=== PATIENT | male | born 1945 | race Caucasian/White ===

== ENCOUNTER 2017-06-03 10:00 | Outpatient (RCR) | payer MEDICARE ==
[2016-05-30 17:17] VITALS: BMI 26.8
[2017-03-19 09:42] VITALS: BP 145/97
[2017-06-03 10:33] LABS: PLATELET COUNT, AUTOMATED 174 K/uL (150-450)
== END 2017-06-06 11:13 | disposition home or self-care (01) ==
LOC: SPU 10:00
PROVIDERS: ATTEND Internal Medicine Medical Oncology
DX: I48.91 Unspecified atrial fibrillation (principal); C61 Malignant neoplasm of prostate; I10 Essential (primary) hypertension
CPT/HCPCS: 36415; 82040; 82247; 82310; 82374; 82435; 82565; 82947; 84075; 84132; 84153; 84155; 84295; 84450; 84460; 84520; 85025

== ENCOUNTER → 2017-06-03 | Outpatient (CLI) | payer MEDICARE ==
[2016-05-30 17:17] VITALS: BMI 26.8
[~2017-06-03] MED LIST: ALBU8.5H IH; ALL100 PO; APIX5TAB PO; ASPI-715 PO; ATOR40TA24 PO; CEP500 PO; CHOL200038 PO; CHOL500050 PO; CIPR-214 PO; CIPR250S PO; DABI150C3 PO; DIGO250T76 PO; DILT300C35 PO; ENAL2.5T52 PO; FERR325C2 PO; FLUT1DIS28 IH; FURO-45 PO; FURO10VI PO; HYDR-385 PO; LOR1 PO; METO100T20 PO; METO25TA93 PO; NEBI20TA3 PO; OMEP40CA48 PO; OXYGENHOME INH; PER PO; PHEN200T32 PO; SIMV-44 PO; SIMV-54 PO; SPIR25TA78 PO; TAMS0.4C25 PO; TELM1TAB20 PO; TIO18R INH; TIOT4MIS5 IH; VITA150T2 PO; WARF10TA29 PO; [UNRECOGNIZED DRUG - CODE] IJ
== END ==
LOC: SPU 10:10
PROVIDERS: ATTEND Urology
DX: C61 Malignant neoplasm of prostate (principal)
CPT/HCPCS: 36415; 84153

== ENCOUNTER → 2017-07-21 | Outpatient (CLI) | payer MEDICARE ==
[2016-05-30 17:17] VITALS: BMI 26.8
[~2017-07-21] MED LIST changes: +ASPI-1471 PO; +CLOT15CR64 TP; +FERR-53 PO; +FLUT1AER INH; +IPRA3AMP21 IH; +PHEN473S50 PO
[2017-07-21 14:11] LABS: PLATELET COUNT, AUTOMATED 140 K/uL (150-450)
== END ==
LOC: LAB 13:40
PROVIDERS: ATTEND Family Medicine
DX: J44.1 Chronic obstructive pulmonary disease with (acute) exacerbation (principal)
CPT/HCPCS: 36415; 82310; 82374; 82435; 82565; 82947; 84132; 84295; 84520; 85025

== ENCOUNTER 2017-09-30 10:49 | Outpatient (RCR) | payer MEDICARE, OTHER ==
[2016-05-30 17:17] VITALS: BMI 26.8
[2017-09-25 11:20] LABS: PLATELET COUNT, AUTOMATED 153 K/uL (150-450)
[2017-09-25 11:21] VITALS: BP 149/76
== END 2017-10-06 13:26 | disposition home or self-care (01) ==
LOC: RAON 10:49
PROVIDERS: ATTEND Radiology Radiation Oncology
DX: C61 Malignant neoplasm of prostate (principal)
CPT/HCPCS: 36415; 84153; 85025; G0463; 82040; 82247; 82310; 82374; 82435; 82565; 82947; 84075; 84132; 84155; 84295; 84450; 84460; 84520; 99212

== ENCOUNTER → 2017-12-03 | Outpatient (CLI) | payer MEDICARE ==
[2016-05-30 17:17] VITALS: BMI 26.8
[~2017-12-03] MED LIST changes: +IPRA3AMP10 IH; -IPRA3AMP21 IH; -SPIR25TA78 PO; +SPIR25TA80 PO
[2017-12-03 13:44] VITALS: BP 128/79
[2017-12-03 13:51] LABS: PLATELET COUNT, AUTOMATED 201 K/uL (150-450)
== END ==
LOC: SPU 11:27
PROVIDERS: ATTEND Urology
DX: C61 Malignant neoplasm of prostate (principal)
CPT/HCPCS: 36415; 82040; 82247; 82310; 82374; 82435; 82565; 82947; 84075; 84132; 84153; 84155; 84295; 84450; 84460; 84520; 85025

== ENCOUNTER → 2017-12-22 | Outpatient (CLI) | payer MEDICARE ==
[2016-05-30 17:17] VITALS: BMI 26.8
[~2017-12-22] MED LIST changes: +ALLO100T70 PO; +MIRT7.5T2 PO
--- NOTE | 2017-12-22 16:47 | RADIOLOGY IMAGING REPORT ---
FACILITY: [facility] PATIENT NAME: Juan Manzano : 1945 MR: [id number] V: [id number] EXAM DATE: ORDERING PHYSICIAN: EVANGELISTA CULVER TECHNOLOGIST: Location: [facility] [place] Patient: Juan Manzano : 1945 Visit/Account:[id number] Date of Sevice: 12/22/2017 Exam type: CHEST PA AND LAT History: effusion? increase o2 req Comparison: May 31, 2016 and May 29, 2016. Findings: Cardiomegaly and mild pulmonary vascular congestion appears similar to the prior study. There is a s light decrease in the small right pleural effusion. Spondylotic changes of the thoracic spine again noted. IMPRESSION: 1. Cardiomegaly and mild pulmonary vascular congestion again noted Slight decrease in small right pleural effusion Report Dictated By: Jaleesa Gonzalez MD at 12/22/2017 4:37 PM Report E-Signed By: Jaleesa Gonzalez MD at 12/22/2017 4:42 PM WSN:[email or web address]
== END ==
LOC: LAB 14:41
PROVIDERS: ATTEND Family Medicine
DX: I51.7 Cardiomegaly (principal); I25.10 Atherosclerotic heart disease of native coronary artery without angina pectoris; J90 Pleural effusion, not elsewhere classified; C91.90 Lymphoid leukemia, unspecified not having achieved remission; M10.9 Gout, unspecified; N18.9 Chronic kidney disease, unspecified
CPT/HCPCS: 36415; 71046; 82310; 82374; 82435; 82565; 82947; 84132; 84295; 84520; 84550

== ENCOUNTER → 2018-01-06 | Outpatient (CLI) | payer MEDICARE ==
[2016-05-30 17:17] VITALS: BMI 26.8
== END ==
LOC: LAB 14:23
PROVIDERS: ATTEND Family Medicine
DX: C61 Malignant neoplasm of prostate (principal); I12.9 Hypertensive chronic kidney disease with stage 1 through stage 4 chronic kidney disease, or unspecified chronic kidney disease; I48.91 Unspecified atrial fibrillation; N18.9 Chronic kidney disease, unspecified
CPT/HCPCS: 36415; 82310; 82374; 82435; 82565; 82947; 84132; 84295; 84520

== ENCOUNTER → 2018-01-20 | Outpatient (CLI) | payer MEDICARE ==
[2016-05-30 17:17] VITALS: BMI 26.8
[~2018-01-20] MED LIST changes: +PRED20TA6 PO
[2018-01-20 14:48] LABS: PLATELET COUNT, AUTOMATED 153 K/uL (150-450)
--- NOTE | 2018-01-20 16:26 | RADIOLOGY IMAGING REPORT ---
FACILITY: [facility] [place] PATIENT NAME: Juan Manzano : 1945 MR: [id number] V: [id number] EXAM DATE: ORDERING PHYSICIAN: ROSELINE LEDEZMA TECHNOLOGIST: Location: [facility] [place] Patient: Juan Manzano : 1945 Visit/Account:[id number] Date of Sevice: 01/20/2018 KNEE 4 VIEW RIGHT HISTORY: Right knee pain ADDITIONAL HISTORY: None. COMPARISON: None. FINDINGS: 4 views were obtained of the right knee. Medial and lateral joint space compartment are well-maintai jonathan. Patellofemoral joint is of normal caliber. There are no significant osteophytes. No erosions. Bony mineralization is normal. Suprapatellar joint effusion is present. There is no evidence of a cute or subacute fracture. IMPRESSION: 1. No evidence of acute osseous abnormality. 2. Small suprapatellar joint effusion. Report Dictated By: Julieth Clarke MD at 01/20/2018 4:08 PM Report E-Signed By: Julieth Clarke MD at 01/20/2018 4:23 PM WSN:[email or web address]
== END ==
LOC: RAD 14:30
PROVIDERS: ATTEND Nurse Practitioner Primary Care
DX: M25.461 Effusion, right knee (principal)
CPT/HCPCS: 36415; 73564; 84550; 85025

== ENCOUNTER 2018-01-28 18:01 | Emergency (ER) | payer MEDICARE ==
[2016-05-30 17:17] VITALS: Wt 80.7 kg
[~2018-01-28 18:01] MED LIST changes: +PRED-1 PO
--- NOTE | 2018-01-28 18:03 | ER Report ---
History and Physical Time Seen By MD: 18:03 HPI/ROS CHIEF COMPLAINT: Epistaxis of the left nare HISTORY OF PRESENT ILLNESS: Patient is a 73-year-old male here with a complaint of epistaxis since approximately 11:00 this morning from the left nare which she is been attempting to stop with application of napkins under pressure. Patient has a history of recurrent nosebleeds and is being treated with apixiban for anticoagulation. Patient denies fevers, chills, chest pain, shortness breath, lightheadedness, dizziness, orthostasis. Patient is otherwise well-appearing, hemodynamically stable at time of evaluation. REVIEW OF SYSTEMS: Constitutional: No fever, no chills. Eyes: No discharge. ENT: No sore throat, + slow bleeding from left nose Cardiovascular: No chest pain, no palpitations. Respiratory: No cough, no shortness of breath. Gastrointestinal: No abdominal pain, no vomiting. Genitourinary: No hematuria. Neurological: No headache. Allergies: Coded Allergies: No Known Drug Allergies (Unverified , 06/18/17) Home Meds Active Scripts Prednisone 10 Mg Tab (PREDNISONE 10 MG TAB) 10 Mg Tablet, 10 MG PO QDAY, #28 TAB take two tablets for three more days, then take 1.5 tablets x 1 week, then take 1 tab x 1 week, then take 1/2 tab x 1 week Prov:EVANGELISTA CULVER MD 01/27/18 Mirtazapine (MIRTAZAPINE) 7.5 Mg Tablet, 7.5 MG PO QHS for 90 Days, #90 TAB 4 Refills Prov:EVANGELISTA CULVER MD 01/21/18 Furosemide (FUROSEMIDE) 20 Mg Tablet, 1-2 TAB PO DAILY for 30 Days, #60 TAB 4 Refills Prov:EVANGELISTA CULVER MD 01/01/18 Allopurinol (ALLOPURINOL) 100 Mg Tablet, 1 TAB PO QDAY for 90 Days, #90 TAB 3 Refills Prov:EVANGELISTA CULVER MD 12/22/17 Ipratropium/Albuterol Sulfate (IPRAT-ALBUT 0.5-3(2.5) MG/3 ML) 3 Ml Ampul.neb, 3 ML IH BID for 30 Days, #60 KEATON 1 Refill Prov:EVANGELISTA CULVER MD 12/22/17 Enalapril Maleate (ENALAPRIL MALEATE) 2.5 Mg Tablet, 1 TAB PO DAILY, #90 TAB 4 Refills Prov:EVANGELISTA CULVER MD 07/21/17 Metoprolol Succinate (METOPROLOL SUCCINATE) 100 Mg Tab.er.24h, 1 TAB PO BID, #90 TAB 4 Refills Prov:EVANGELISTA CULVER MD 07/21/17 Simvastatin (SIMVASTATIN) 40 Mg Tablet, 1 TAB PO HS, #90 TAB 4 Refills Prov:EVANGELISTA CULVER MD 07/21/17 Digoxin (DIGOXIN) 250 Mcg Tablet, 1 TAB PO QDAY, #90 TAB 4 Refills Prov:EVANGELISTA CULVER MD 07/21/17 Tamsulosin Hcl (FLOMAX) 0.4 Mg Cap.er.24h, 0.4 MG PO DAILY, #90 CAP 3 Refills Take 1 tablet at night for bladder irritation post seed implant Prov:EVANGELISTA CULVER MD 07/21/17 Apixaban (ELIQUIS) 5 Mg Tablet, 1 TAB PO BID for 90 Days, #180 TAB 3 Refills Prov:EVANGELISTA CULVER MD 07/21/17 Albuterol Sulfate 90 Mcg/Act (PROAIR HFA 90 MCG/ACT) 8.5 Gm Hfa.aer.ad, 1-2 PUFF IH 3-4XD PRN for PRN for 90 Days, #3 INHALER 4 Refills Prov:EVANGELISTA CULVER MD 07/21/17 Phenylephrine HCl/Prometh HCl (Promethazine Vc Syrup) 5 Mg-6.25 Mg/5 Ml Syrup, 2 TSP PO BID PRN for CONGESTION for 7 Days, #1 BOT 1 Refill Prov:EVANGELISTA CULVER MD 07/18/17 Tiotropium [place] (SPIRIVA) 18 Mcg/Cap Inh, 1 CAP INH DAILY for 90 Days, #3 PACK 4 Refills Prov:EVANGLEISTA CULVER MD 07/11/17 Omeprazole (OMEPRAZOLE) 40 Mg Capsule.dr, 1 CAP PO QDAY PRN for heart burn, #90 CAP 4 Refills 1 tab by mouth every day before meal Prov:EVANGELISTA CULVER MD 06/18/17 Reported Medications Fluticasone/Vilanterol 100/25 Mcg/Inh (BREO ELLIPTA 100/25 MCG) 1 Each Aer.pow.ba, 1 INH INH QDAY, INH 07/21/17 Clotrimazole/Betamethasone Dip (CLOTRIMAZOLE-BETAMETHASONE CRM) 15 Gm Cream..g., 1 KEATON TP BID 06/18/17 Ferrous Sulfate (FERROUS SULFATE) 325 Mg Tablet, 1 TAB PO DAILY 06/18/17 Aspirin (ASPIR 81) 81 Mg Tablet.dr, 1 TAB PO QDAY, TAB 06/18/17 Cholecalciferol (Vitamin D3) (VITAMIN D3) 2,000 Unit Tablet, 1 CAP PO DAILY 11/28/16 Oxygen (OXYGEN) Inha, 2 L INH QDAY, L 11/28/16 Discontinued Scripts Prednisone (PREDNISONE) 20 Mg Tablet, 2 TAB PO QDAY, #11 TAB 0 Refills Take 2 tabs daily x3 days. Then 1 tab daily x3 days. Then 1/2 tab daily x4 days. Prov:ROSELINE LEDEZMA DNP, SCABBLER-BC 01/20/18 Hx Smoking: No (SMOKED 1 PPD FOR 30 YEARS. quit 2003) Smoking Status: Former Smoker Exposure to Second Hand Smoke?: No Hx Alcohol Use: Yes Constitutional Vital Sign - Last 24 Hours 01/28/18 01/28/18 01/28/18 01/28/18 18:04 18:08 18:31 18:52 Temp 98.0 Pulse 88 71 Resp 16 B/P (MAP) 132/62 (85) 132/62 107/82 (90) Pulse Ox 96 97 O2 Delivery Nasal Cannula 01/28/18 01/28/18 19:00 19:01 Pulse 75 B/P (MAP) 100/49 (66) Pulse Ox 96 Physical Exam General Appearance: The patient is alert, has no immediate need for airway protection and no signs of toxicity. NAD Eyes: Pupils equal and round no pallor or injection. ENT, Mouth: Mucous membranes are moist, + dried blood around left nare Respiratory: There are no retractions, lungs are clear to auscultation. Cardiovascular: Regular rate and rhythm. Gastrointestinal: Abdomen is soft and non tender, no masses, bowel sounds normal. Neurological: No focal deficits Skin: Warm and dry, no rashes. DIFFERENTIAL DIAGNOSIS: After history and physical exam differential diagnosis was considered for anterior versus posterior epistaxis Medical Decision Making ED Course/Re-evaluation ED Course Patient is a 73-year-old male here with complaints of epistaxis in the setting of eliquis. Patient reports intermittent bleeding since approximately 11:00 today. He does have a history of recurrent epistaxis. I initially applied tranexamic acid to a cotton plaget with cessation of bleeding. Patient had no symptoms of lightheadedness, dizziness, chest pain or shortness of breath. I applied 2 sprays of oxygen metolazone and send the patient home with nasal clamp and the remaining oxygen metolazone encase of rebleed. Patient voiced understanding of epistaxis management and outpatient setting. Patient agreed to return promptly if he was unable to stop the bleeding. Patient was hemodynamically stable at time of discharge. Decision to Disposition Date: Jan 28, 2018 Decision to Disposition Time: 19:53 Depart Departure Latest Vital Signs Vital Signs Date Time Temp Pulse Resp B/P (MAP) Pulse Ox O2 Delivery O2 Flow Rate FiO2 01/28/18 19:01 75 96 01/28/18 19:00 100/49 (66) 01/28/18 18:08 98.0 16 Nasal Cannula Impression: Primary Impression: Nosebleed Condition: Improved Disposition: HOME OR SELF-CARE Referrals: EVANGELISTA CULVER MD (PCP) Patient Instructions: Nosebleed (ED) Additional Instructions: You may apply 2 sprays of oxymetazoline was on her Afrin spray to the left nare and apply direct pressure using nose clamp for 15 minutes. Please return if you develop intractable bleeding from the nose in spite of attempts to stop the bleeding, lightheadedness, shortness breath, chest pains, abdominal pains. JOB HUNT DO Jan 28, 2018 18:03
[2018-01-28] MEDS ORDERED: TRANEXAMIC AC 1000 MG/10ML SDV ONE (18:15)
[2018-01-28 20:00] VITALS: BP 101/59
[2018-01-28] MEDS ORDERED: OXYMETAZOLINE SPRAY 15 ML BTL ENA SCH (21:00)
== END 2018-01-28 20:10 | disposition home or self-care (01) ==
LOC: ER 18:21
DX: R04.0 Epistaxis (principal)
CPT/HCPCS: 30901; 99283; A9270

== ENCOUNTER → 2018-02-13 | Outpatient (CLI) | payer MEDICARE ==
[2016-05-30 17:17] VITALS: BMI 26.8
[~2018-02-13] MED LIST changes: +BENZ200C15 PO; +LEVO750T44 PO
--- NOTE | 2018-02-18 15:01 | RADIOLOGY IMAGING REPORT ---
FACILITY: [facility] PATIENT NAME: Juan Manzano : 1945 MR: [id number] V: [id number] EXAM DATE: ORDERING PHYSICIAN: ROSELINE LEDEZMA TECHNOLOGIST: Location: [facility] [place] Patient: Juan Manzano : 1945 Visit/Account:[id number] Date of Sevice: 02/13/2018 Chest with lateral, two views. HISTORY: Shortness of breath, cough, smoking history. COMPARISON: 12/22/2017. Moderate cardiomegaly is unchanged. The left atrium is enlarged. Pulmonary vessels are engorged. T he aortic knob is calcified. Interstitial markings are thickened bilaterally. Streaky and patchy op acities are present in the posterior lung bases. The posterior costophrenic sulci are minimally blun luiz. Degenerative changes are present in the spine and shoulders. A few arterial calcifications are present in the upper abdomen. IMPRESSION: Moderate cardiomegaly. Borderline congestive heart failure. Bibasilar subsegmental atelectasis. Superimposed pneumonia is possible. Trace bilateral pleural effusions or thickening. Atherosclerosis. Report Dictated By: Jed Whitley MD at 02/18/2018 2:53 PM Report E-Signed By: Jed Whitley MD at 02/18/2018 2:56 PM WSN:[email or web address]
== END ==
LOC: RAD 11:17
PROVIDERS: ATTEND Nurse Practitioner Primary Care
DX: I51.7 Cardiomegaly (principal); I50.9 Heart failure, unspecified
CPT/HCPCS: 71046

== ENCOUNTER → 2018-02-16 | Outpatient (CLI) | payer MEDICARE ==
[2016-05-30 17:17] VITALS: BMI 26.8
--- NOTE | 2018-02-16 14:23 | RADIOLOGY IMAGING REPORT ---
FACILITY: [facility] - [place] PATIENT NAME: Juan Manzano : 1945 MR: [id number] V: [id number] EXAM DATE: ORDERING PHYSICIAN: EVANGELISTA CULVER TECHNOLOGIST: Location: [facility] [place] Patient: Juan Manzano : 1945 Visit/Account:[id number] Date of Sevice: 02/16/2018 EXAMINATION: Left elbow radiographs HISTORY: Pain, swelling COMPARISON: None. FINDINGS: Frontal, oblique and lateral views obtained. Bones: Normal. Joint spaces: Normal. Alignment: Normal. Soft tissues: Dorsal subcutaneous edema noted on lateral view. Effusion: Anterior and posterior fat pads are noted in keeping with a small joint effusion. IMPRESSION: No fracture of malalignment. Dorsal subcutaneous edema noted on lateral view. Small nonspecific elbow joint effusion. Report Dictated By: Antony Coughlin MD at 02/16/2018 2:14 PM Report E-Signed By: Antony Coughlin MD at 02/16/2018 2:18 PM WSN:[email or web address]
== END ==
LOC: RAD 13:41
PROVIDERS: ATTEND Family Medicine
DX: M25.422 Effusion, left elbow (principal); R60.0 Localized edema

== ENCOUNTER → 2018-02-23 | Outpatient (CLI) | payer MEDICARE ==
[2016-05-30 17:17] VITALS: BMI 26.8
== END ==
LOC: LAB 17:04
PROVIDERS: ATTEND Family Medicine
DX: N18.9 Chronic kidney disease, unspecified (principal); M10.9 Gout, unspecified
CPT/HCPCS: 36415; 82040; 82247; 82310; 82374; 82435; 82565; 82947; 84075; 84132; 84155; 84295; 84450; 84460; 84520; 84550

== ENCOUNTER → 2018-03-05 | Outpatient (CLI) | payer MEDICARE ==
[2016-05-30 17:17] VITALS: BMI 26.8
[~2018-03-05] MED LIST changes: +FLU180SY11 IM
[2018-03-05 14:27] LABS: PLATELET COUNT, AUTOMATED 164 K/uL (150-450)
--- NOTE | 2018-03-05 15:47 | RADIOLOGY IMAGING REPORT ---
FACILITY: [facility] PATIENT NAME: Juan Manzano : 1945 MR: [id number] V: [id number] EXAM DATE: ORDERING PHYSICIAN: EVANGELISTA CULVER TECHNOLOGIST: Location: [facility] Patient: Juan Manzano : 1945 Visit/Account:[id number] Date of Sevice: 03/05/2018 Exam type: CHEST PA AND LAT History: fu CXR, pna Comparison: February 13, 2018. Findings: Moderate cardiomegaly appears relatively unchanged. There is persistent blunting of the right costop hrenic angle which could be related to small amount of residual right pleural effusion versus pleural thickening. There is no evidence of overt pulmonary edema at this time. Linear opacities the lung bases appear relatively unchanged and may actually represent scarring at this time. There are spondy lotic changes of the thoracolumbar spine IMPRESSION: 1. Cardiomegaly unchanged Blunting of the right costophrenic angle unchanged and may represent pleural thickening versus a smal l residual right pleural effusion No evidence of overt pulmonary edema Streaky densities in the lung bases appears stable may actually represent scarring Report Dictated By: Jaleesa Gonzalez MD at 03/05/2018 3:39 PM Report E-Signed By: Jaleesa Gonzalez MD at 03/05/2018 3:43 PM WSN:[email or web address]
== END ==
LOC: LAB 14:10
PROVIDERS: ATTEND Family Medicine
DX: R09.02 Hypoxemia (principal); I51.7 Cardiomegaly
CPT/HCPCS: 36415; 71046; 82040; 82247; 82310; 82374; 82435; 82565; 82947; 84075; 84132; 84155; 84295; 84450; 84460; 84520; 85025

== ENCOUNTER → 2018-04-02 | Outpatient (CLI) | payer MEDICARE ==
[2016-05-30 17:17] VITALS: BMI 26.8
--- NOTE | 2018-04-02 16:40 | RADIOLOGY IMAGING REPORT ---
FACILITY: [facility] PATIENT NAME: Juan Manzano : 1945 MR: [id number] V: [id number] EXAM DATE: ORDERING PHYSICIAN: EVANGELISTA CULVER TECHNOLOGIST: Location: [facility] Patient: Juan Manzano : 1945 Visit/Account:[id number] Date of Sevice: 04/02/2018 Study: Frontal and lateral views of the chest Indication: History of pneumonia Comparison study: March 05, 2018 Findings: PA and lateral views of the chest demonstrate no evidence of acute infiltrate. There is no evidence of pleural effusion. There is no evidence of pneumothorax. The cardiac silhouette is enlarged. This is unchanged. There is no evidence of active congestive fail ure. The visualized bony structures are unremarkable. IMPRESSION: Cardiomegaly. No evidence of acute infiltrate. No evidence of active congestive failure. No evidence of pleural effusion. Report Dictated By: Ryan Plaaz at 04/02/2018 4:28 PM Report E-Signed By: Ryan Plaza at 04/02/2018 4:35 PM WSN:[id number]
== END ==
LOC: LAB 15:13
PROVIDERS: ATTEND Family Medicine
DX: I51.7 Cardiomegaly (principal)
CPT/HCPCS: 71046

== ENCOUNTER 2018-04-07 14:00 | Outpatient (RCR) | payer MEDICARE, OTHER ==
[2016-05-30 17:17] VITALS: BMI 26.8
[2018-04-03 11:12] VITALS: BP 106/52
[2018-04-07 14:16] VITALS: BP 100/48
--- NOTE | 2018-04-08 04:16 | ONCOLOGY FOLLOW UP NOTE ---
EVENT DATE: April 07, 2018 REASON FOR VISIT Oncology surveillance. CANCER HISTORY 1. Adenocarcinoma of the prostate, diagnosed 04/03/15. 2. Patient treated with external beam radiotherapy to 5040 cGy in 28 fractions, which was followed by a Palladium-103 seed implant boost. INTERVAL HISTORY Ramakrishna was seen for oncology surveillance appointment, clinically doing well. He states his voiding function is excellent. Denies any dysuria. Excellent control. AUA symptom score is quite low at 3. Since his last appointment, he has been able to stop alcohol use completely. He was congratulated on that effort. He stopped in November 2017. He denies any new or persistent bone pain. He remains on oxygen at 6L. His external beam radiotherapy was completed 05/22/15. The Palladium-[address] Sharpe was performed on 06/19/15. Most recent PSA is stable at 0.16 ng/mL, performed on 04/03/18. MEDICATIONS 1. Oxygen at 6L. 2. Advair. 3. Aspirin. 4. Generic Prilosec. 5. Digoxin. 6. Iron. 7. Lasix. 8. Metoprolol. 9. Pradaxa. 10. Simvastatin. 11. Spiriva. 12. Spironolactone. 13. Tamsulosin. 14. Vitamin B-complex. 15. Allopurinol. ALLERGIES None. PAST MEDICAL HISTORY 1. Prostate carcinoma. 2. COPD. 3. History of atrial fibrillation. 4. History of prior alcohol dependence, resolved. 5. History of pneumonia, 2018. 6. Gout. 7. History of pulmonary hypertension. 8. CLL. PAST SURGICAL HISTORY 1. Palladium-103 seed implant. 2. Previous right rotator cuff surgery. 3. Eye surgery. 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 Father had malignancy, NOS. Grandfather had leukemia at age 93. REVIEW OF SYSTEMS Notable for pneumonia approximately eight to 12 weeks ago, intermittent problems with gout, otherwise unremarkable. PHYSICAL EXAMINATION GENERAL: A pleasant 74-year-old male. VITAL SIGNS: BP 100/43, pulse 70, respirations 16, O2 saturation 91% on 6L. LYMPHATIC: No lymphadenopathy. LUNGS: Clear but distant bilaterally. CARDIOVASCULAR: Heart sounds regular. ABDOMEN: Soft. No gross organomegaly, mass, or tenderness. RECTAL: Deferred, as PSA is stable, under the 0.2 range. EXTREMITIES: No edema or cyanosis. NEUROLOGIC: Intact. IMPRESSION The patient is clinically doing well from the prostate cancer standpoint. He is now approaching the three-year interval from the completion of his external beam radiotherapy and seed implant boost. PSA is under 0.2 ng/mL. I advised him to have a repeat PSA at six months and 12 months, and I will tentatively expect to see him again at the 12-month appointment. Patient will continue regular medical visits with Dr. Mott per schedule. No medication changes today. MTDD
[2018-04-15] MEDS ORDERED: ALLO-2 PO (17:00)
== END 2018-04-15 12:47 | disposition home or self-care (01) ==
LOC: RAON 14:00
PROVIDERS: ATTEND Radiology Radiation Oncology
DX: C61 Malignant neoplasm of prostate (principal); Z92.3 Personal history of irradiation; Z99.81 Dependence on supplemental oxygen; J44.9 Chronic obstructive pulmonary disease, unspecified; Z86.79 Personal history of other diseases of the circulatory system; M10.9 Gout, unspecified; Z85.6 Personal history of leukemia; Z79.82 Long term (current) use of aspirin
CPT/HCPCS: 36415; 84153; G0463; 99212

== ENCOUNTER 2018-05-22 09:13 | Emergency (ER) | payer MEDICARE ==
[2016-05-30 17:17] VITALS: Wt 81.6 kg
[~2018-05-22 09:13] MED LIST changes: +ALLO-2 PO
[2018-05-22] MEDS ORDERED: ENT KIT ONE (09:40)
[2018-05-22] MEDS ORDERED: TRANEXAMIC AC 1000 MG/10ML SDV ONE (10:05)
[2018-05-22] MEDS ORDERED: PHENYLEPHRINE 0.5% 15 ML BTL ONE (10:05)
[2018-05-22 11:24] LABS: PLATELET COUNT, AUTOMATED 147 K/uL (150-450)
[2018-05-22 12:00] VITALS: BP 115/51
--- NOTE | 2018-05-22 12:20 | ER Report ---
History and Physical Time Seen By MD: 09:25 Hx. of Stated Complaint: Nose bleed, takes blood thinner HPI/ROS CHIEF COMPLAINT: Epistaxis HISTORY OF PRESENT ILLNESS: Patient presents with epistaxis since early this morning. Epistaxis has been constant for at least 3 hours. Patient has had approximately 4 episodes in the last 2-3 years. He is on [employer] for A. fib. He has attempted to control and struck pressure at home but this has been unsuccessful. Patient denies headache, chest pain, difficulty breathing, though of note he is on constant O2 for COPD. However, he has placed the nasal cannula in his oropharynx and this is preventing difficulty breathing. Patient denies blood in stool, nausea, vomiting, abdominal pain. He denies lightheadedness, syncope. REVIEW OF SYSTEMS: Constitutional: No fever, no chills. Eyes: No discharge. ENT: above Cardiovascular: No chest pain, no palpitations. Respiratory: No cough, no shortness of breath. Gastrointestinal: No abdominal pain, no vomiting. Genitourinary: No hematuria. Musculoskeletal: No back pain. Skin: No rashes. Neurological: No headache. Remainder of the 14 system rev: Yes Allergies: Coded Allergies: No Known Drug Allergies (Unverified , 06/18/17) Home Meds Active Scripts Apixaban (ELIQUIS) 5 Mg Tablet, 1 TAB PO BID for 90 Days, #180 TAB 2 Refills Prov:EVANGELISTA CULVER MD 04/23/18 Allopurinol (Allopurinol) 300 Mg Tablet, 1 TAB PO DAILY for 90 Days, #90 TAB Prov:EVANGELISTA CULVER MD 04/15/18 Ipratropium/Albuterol Sulfate (IPRAT-ALBUT 0.5-3(2.5) MG/3 ML) 3 Ml Ampul.neb, 3 ML IH BID for 30 Days, #60 KEATON 1 Refill Prov:EVANGELISTA CULVER MD 04/02/18 Metoprolol Succinate (METOPROLOL SUCCINATE) 100 Mg Tab.er.24h, 1 TAB PO BID for 90 Days, #180 TAB 4 Refills Prov:EVANGELISTA CULVER MD 03/12/18 Benzonatate (BENZONATATE) 200 Mg Capsule, 1 CAP PO TID PRN for COUGH, #30 CAP 0 Refills Prov:EVANGELISTA CULVER MD 02/23/18 Mirtazapine (MIRTAZAPINE) 7.5 Mg Tablet, 7.5 MG PO QHS for 90 Days, #90 TAB 4 Refills Prov:EVANGELISTA CULVER MD 01/21/18 Furosemide (FUROSEMIDE) 20 Mg Tablet, 1-2 TAB PO DAILY for 30 Days, #60 TAB 4 Refills Prov:EVANGELISTA CULVER MD 01/01/18 Enalapril Maleate (ENALAPRIL MALEATE) 2.5 Mg Tablet, 1 TAB PO DAILY, #90 TAB 4 Refills Prov:EVANGELISTA CULVER MD 07/21/17 Simvastatin (SIMVASTATIN) 40 Mg Tablet, 1 TAB PO HS, #90 TAB 4 Refills Prov:EVANGELISTA CULVER MD 07/21/17 Digoxin (DIGOXIN) 250 Mcg Tablet, 1 TAB PO QDAY, #90 TAB 4 Refills Prov:EVANGELISTA CULVER MD 07/21/17 Tamsulosin Hcl (FLOMAX) 0.4 Mg Cap.er.24h, 0.4 MG PO DAILY, #90 CAP 3 Refills Take 1 tablet at night for bladder irritation post seed implant Prov:EVANGELISTA CULVER MD 07/21/17 Albuterol Sulfate 90 Mcg/Act (PROAIR HFA 90 MCG/ACT) 8.5 Gm Hfa.aer.ad, 1-2 PUFF IH 3-4XD PRN for PRN for 90 Days, #3 INHALER 4 Refills Prov:EVANGELISTA CULVER MD 07/21/17 Phenylephrine HCl/Prometh HCl (Promethazine Vc Syrup) 5 Mg-6.25 Mg/5 Ml Syrup, 2 TSP PO BID PRN for CONGESTION for 7 Days, #1 BOT 1 Refill Prov:EVANGELISTA CULVER MD 07/18/17 Tiotropium [place] (SPIRIVA) 18 Mcg/Cap Inh, 1 CAP INH DAILY for 90 Days, #3 PACK 4 Refills Prov:EVANGELISTA CULVER MD 07/11/17 Omeprazole (OMEPRAZOLE) 40 Mg Capsule.dr, 1 CAP PO QDAY PRN for heart burn, #90 CAP 4 Refills 1 tab by mouth every day before meal Prov:EVANGELISTA CULVER MD 06/18/17 Reported Medications Fluticasone/Vilanterol 100/25 Mcg/Inh (BREO ELLIPTA 100/25 MCG) 1 Each Aer.pow.ba, 1 INH INH QDAY, INH 07/21/17 Clotrimazole/Betamethasone Dip (CLOTRIMAZOLE-BETAMETHASONE CRM) 15 Gm Cream..g., 1 KEATON TP BID 06/18/17 Ferrous Sulfate (FERROUS SULFATE) 325 Mg Tablet, 1 TAB PO DAILY 06/18/17 Cholecalciferol (Vitamin D3) (VITAMIN D3) 2,000 Unit Tablet, 1 CAP PO DAILY 11/28/16 Oxygen (OXYGEN) Inha, 2 L INH QDAY, L 11/28/16 Discontinued Scripts Benzonatate (BENZONATATE) 200 Mg Capsule, 1 CAP PO TID PRN for COUGH for 3 Days, #9 CAP 0 Refills Prov:ROSELINE LEDEZMA DNP, FIRST RESPONDER-BC 02/20/18 Reviewed Nurses Notes: Yes Old Medical Records Reviewed: Yes Hx Smoking: No (SMOKED 1 PPD FOR 30 YEARS. quit 2003) Smoking Status: Former Smoker Exposure to Second Hand Smoke?: No Hx Substance Use Disorder: No Hx Alcohol Use: Yes Constitutional Vital Sign - Last 24 Hours 05/22/18 05/22/18 05/22/18 05/22/18 09:17 09:52 10:00 10:13 Pulse 109 77 Resp 16 B/P (MAP) 127/62 124/69 (87) 117/60 (79) Pulse Ox 75 95 O2 Delivery Nasal Cannula 05/22/18 05/22/18 05/22/18 05/22/18 10:18 10:30 10:48 11:00 Pulse ??? 68 B/P (MAP) 109/40 (63) 116/59 (78) Pulse Ox 96 98 05/22/18 05/22/18 05/22/18 05/22/18 11:05 11:30 11:35 12:00 Pulse 69 71 B/P (MAP) 132/71 (91) 115/51 (72) Pulse Ox 98 97 05/22/18 12:05 Pulse 63 Pulse Ox 97 Physical Exam General Appearance: The patient is alert, has no immediate need for airway protection and no signs of toxicity. Eyes: Pupils equal and round no pallor or injection. ENT, Mouth: Mucous membranes are moist. R nare nl. L nare brisk bleeding without pulsatile. Speculum exam shows apparent septal anterior source of bleeding. Respiratory: There are no retractions, lungs are clear to auscultation. Cardiovascular: irregular rhythm, rate 60-80 Neurological: alert, moves all ext Skin: Warm and dry, no rashes. Musculoskeletal: extremities nonswollen DIFFERENTIAL DIAGNOSIS: After history and physical exam differential diagnosis was considered for post epistaxis, significant anemia, polyp/mass, or other emergent cause of bleeding. Medical Decision Making Data Points Result Diagram: 05/22/18 1118 05/22/18 1118 Laboratory Hematology Test 05/22/18 11:18 Red Blood Count 3.38 M/uL (4.00-5.60) Mean Corpuscular Volume 94.0 fL (80.0-96.0) Mean Corpuscular Hemoglobin 29.2 pg (26.0-33.0) Mean Corpuscular Hemoglobin Concent 31.0 g/dL (32.0-36.0) Red Cell Distribution Width 16.0 % (11.5-14.5) Mean Platelet Volume 7.8 fL (7.2-11.1) Neutrophils (%) (Auto) 11.0 % (39.4-72.5) Lymphocytes (%) (Auto) 87.2 % (17.6-49.6) Monocytes (%) (Auto) 0.7 % (4.1-12.4) Eosinophils (%) (Auto) 0.1 % (0.4-6.7) Basophils (%) (Auto) 1.0 % (0.3-1.4) Nucleated RBC Relative Count (auto) 0.0 /100WBC Neutrophils # (Auto) 6.0 K/uL (2.0-7.4) Lymphocytes # (Auto) 47.3 K/uL (1.3-3.6) Monocytes # (Auto) 0.4 K/uL (0.3-1.0) Eosinophils # (Auto) 0.0 K/uL (0.0-0.5) Basophils # (Auto) 0.5 K/uL (0.0-0.1) Nucleated RBC Absolute Count (auto) 0.01 K/uL Peripheral Blood Smear Yes Y/N Sodium Level 136 mmol/L (137-145) Potassium Level 4.5 mmol/L (3.5-5.0) Chloride Level 94 mmol/L (98-107) Carbon Dioxide Level 37 mmol/L (22-30) Blood Urea Nitrogen 42 mg/dl (9-21) Creatinine 1.40 mg/dl (0.66-1.25) Glomerular Filtration Rate Calc 49.8 Random Glucose 100 mg/dl (75-110) Calcium Level 9.6 mg/dl (8.4-10.2) Chemistry Test 05/22/18 11:18 White Blood Count 54.3 k/uL (4.5-11.0) Red Blood Count 3.38 M/uL (4.00-5.60) Hemoglobin 9.9 g/dL (14.0-18.0) Hematocrit 31.8 % (42.0-52.0) Mean Corpuscular Volume 94.0 fL (80.0-96.0) Mean Corpuscular Hemoglobin 29.2 pg (26.0-33.0) Mean Corpuscular Hemoglobin Concent 31.0 g/dL (32.0-36.0) Red Cell Distribution Width 16.0 % (11.5-14.5) Platelet Count 147 K/uL (150-450) Mean Platelet Volume 7.8 fL (7.2-11.1) Neutrophils (%) (Auto) 11.0 % (39.4-72.5) Lymphocytes (%) (Auto) 87.2 % (17.6-49.6) Monocytes (%) (Auto) 0.7 % (4.1-12.4) Eosinophils (%) (Auto) 0.1 % (0.4-6.7) Basophils (%) (Auto) 1.0 % (0.3-1.4) Nucleated RBC Relative Count (auto) 0.0 /100WBC Neutrophils # (Auto) 6.0 K/uL (2.0-7.4) Lymphocytes # (Auto) 47.3 K/uL (1.3-3.6) Monocytes # (Auto) 0.4 K/uL (0.3-1.0) Eosinophils # (Auto) 0.0 K/uL (0.0-0.5) Basophils # (Auto) 0.5 K/uL (0.0-0.1) Nucleated RBC Absolute Count (auto) 0.01 K/uL Peripheral Blood Smear Yes Y/N Glomerular Filtration Rate Calc 49.8 Calcium Level 9.6 mg/dl (8.4-10.2) ED Course/Re-evaluation ED Course Pt presents with epistaxis; controlled in ED with txa after I discussed risks and benefits of txa v packing. Pt understands there is theoretical risk with his afib and elequis but is adamantly opposed to packing. Bleeding is ultimately controlled in ED and pt is comfortable with d/c, understands sgs/symptoms of complications and rtn precautions. Procedure Procedure: Epistaxis control. The patient was anesthetized with oxymetazolin. The anterior epistaxis was identified. The patient was treated with tranexamic acid, cautery. Followin g the procedure the patient was re-examined and the bleeding was well controlled. The patient tolerated the procedure well. The procedure was performed by myself. Decision to Disposition Date: May 22, 2018 Decision to Disposition Time: 12:24 Depart Departure Latest Vital Signs Vital Signs Date Time Temp Pulse Resp B/P (MAP) Pulse Ox O2 Delivery O2 Flow Rate FiO2 05/22/18 12:05 63 97 05/22/18 12:00 115/51 (72) 05/22/18 09:17 16 Nasal Cannula Impression: Primary Impression: Epistaxis Additional Impression: Leukocytosis Condition: Improved Disposition: HOME OR SELF-CARE Referrals: EVANGELISTA CULVER MD (PCP) 2 Days RICKEY PASTOR JR, MD 5 Days Patient Instructions: Nosebleed (ED) Additional Instructions: As we discussed, though unlikely, the nasal spray I used has a small risk of clotting. Please return immediately for any new weakness, confusion, chest pain, difficulty breathing, or any concerns. Follow up with your oncologist as we discussed for evaluation of your white blood cell count. Follow up with ENT for repeat evaluation and need for any further cautery. Problem Qualifiers Additional Impression: Leukocytosis Leukocytosis type: unspecified Qualified Codes: D72.829 - Elevated white blood cell count, unspecified MARCEL CANALES MD May 22, 2018 12:20
== END 2018-05-22 12:36 | disposition home or self-care (01) ==
LOC: ER 09:52
DX: R04.0 Epistaxis (principal); D72.829 Elevated white blood cell count, unspecified
CPT/HCPCS: 36415; 82310; 82374; 82435; 82565; 82947; 84132; 84295; 84520; 85025; 99282

== ENCOUNTER 2018-06-05 10:31 | Outpatient (RCR) | payer MEDICARE, OTHER ==
[2016-05-30 17:17] VITALS: BMI 26.8
[2018-06-04 12:35] LABS: PLATELET COUNT, AUTOMATED 169 K/uL (150-450)
[2018-06-15] MEDS ORDERED: FORM20VI IH (11:12)
[2018-06-15] MEDS ORDERED: BUDE1AMP (11:12)
[2018-06-18] MEDS ORDERED: PRED20TA6 PO (10:26)
== END 2018-06-17 09:28 | disposition home or self-care (01) ==
LOC: RAON 10:31
PROVIDERS: ATTEND Radiology Radiation Oncology
DX: C61 Malignant neoplasm of prostate (principal); Z92.3 Personal history of irradiation; Z99.81 Dependence on supplemental oxygen; J44.9 Chronic obstructive pulmonary disease, unspecified; Z86.79 Personal history of other diseases of the circulatory system; M10.9 Gout, unspecified; Z85.6 Personal history of leukemia; Z79.82 Long term (current) use of aspirin
CPT/HCPCS: 36415; 82040; 82247; 82310; 82374; 82435; 82565; 82947; 84075; 84132; 84153; 84155; 84295; 84450; 84460; 84520; 85025

== ENCOUNTER → 2018-06-15 | Outpatient (CLI) | payer MEDICARE ==
[2016-05-30 17:17] VITALS: BMI 26.8
[~2018-06-15] MED LIST changes: +BUDE1AMP; +FORM20VI IH
--- NOTE | 2018-06-15 11:49 | RADIOLOGY IMAGING REPORT ---
FACILITY: [facility] PATIENT NAME: Juan Manzano : 1945 MR: [id number] V: [id number] EXAM DATE: ORDERING PHYSICIAN: EVANGELISTA CULVER TECHNOLOGIST: Location: [facility] Patient: Juan Manzano : 1945 Visit/Account:[id number] Date of Sevice: 06/15/2018 CHEST PA LAT Additional pertinent History: Hypoxia COMPARISON STUDIES: 04/02/2018 FINDINGS: Support lines and catheters: None Lungs and Pleura: Coarse bibasilar bronchial thickening changes. There is an increasing opacity not ed in the posterior aspect of the left lung on the lateral film. This is not silhouetting the axminster rug setter ior aspect of the adjacent hemidiaphragm. Heart and vasculature: Heart enlarged. Central vasculature without congestion Gertrude and Mediastinum: Negative. Bones and Chest wall: Negative. Upper Abdomen: Negative. IMPRESSION: 1. Cardiomegaly. Coarse bibasilar bronchitic changes. Slight increasing opacity in the posterior a spect of the lung on the lateral film when compared to the previous study but fairly equivalent to a study from 02/13/2018 suggesting this likely represents chronic bronchial thickening/atelectasis rathe r than a developing infiltrate. Report Dictated By: Jaydon Moran MD at 06/15/2018 11:38 AM Report E-Signed By: Jaydon Moran MD at 06/15/2018 11:45 AM WSN:PHU
[2018-06-15 11:50] LABS: PLATELET COUNT, AUTOMATED 166 K/uL (150-450)
== END ==
LOC: LAB 11:01
PROVIDERS: ATTEND Family Medicine
DX: I51.7 Cardiomegaly (principal); R91.8 Other nonspecific abnormal finding of lung field; M10.9 Gout, unspecified; N18.9 Chronic kidney disease, unspecified; R09.02 Hypoxemia
CPT/HCPCS: 36415; 71046; 82310; 82374; 82435; 82565; 82947; 84132; 84295; 84520; 84550; 85025

== ENCOUNTER → 2018-06-29 | Outpatient (CLI) | payer MEDICARE ==
[2016-05-30 17:17] VITALS: BMI 26.8
[~2018-06-29] MED LIST changes: +OXYC5TAB38 PO
--- NOTE | 2018-06-29 16:29 | RADIOLOGY IMAGING REPORT ---
FACILITY: [facility] [place] PATIENT NAME: Juan Manzano : 1945 MR: [id number] V: [id number] EXAM DATE: ORDERING PHYSICIAN: EVANGELISTA CULVER TECHNOLOGIST: Location: [facility] [place] Patient: Juan Manzano : 1945 Visit/Account:[id number] Date of Sevice: 06/29/2018 EXAMINATION: Left foot, 3 views 06/29/2018 1:55 PM HISTORY: left foot heel pain COMPARISON: None FINDINGS: Bony structures of left foot are intact without fracture or other acute osseous abnormalit y. Minimal spurring along the first MTP. No erosive changes. Achilles and plantar calcaneal spurri ng. IMPRESSION: 1. Achilles and plantar calcaneal spurring present. 2. No acute bony finding the foot. Report Dictated By: Harman Linda MD at 06/29/2018 4:23 PM Report E-Signed By: Harman Linda MD at 06/29/2018 4:24 PM WSN:PHU
== END ==
LOC: RAD 13:29
PROVIDERS: ATTEND Family Medicine
DX: M77.32 Calcaneal spur, left foot (principal)

== ENCOUNTER 2018-07-18 08:11 | Emergency (ER) | payer MEDICARE ==
[2016-05-30 17:17] VITALS: Wt 81.8 kg
[2018-07-18] MEDS ORDERED: ENT KIT ONE (09:06)
--- NOTE | 2018-07-18 09:14 | ER Report ---
History and Physical Time Seen By MD: 09:12 Hx. of Stated Complaint: NOSEBLEED SINCE 7PM LAST NIGHT HPI/ROS CHIEF COMPLAINT: Nosebleed HISTORY OF PRESENT ILLNESS: Patient is a 73-year-old male with past medical history for atrial fibrillation and anticoagulated with Eliquis; states had no nosebleed that began around 7 PM last evening. Nosebleed would start and stop kept him up all night. He denies any headache or dizziness. No other complaints at this time. REVIEW OF SYSTEMS: ENT: Nosebleed Respiratory: No cough, no dyspnea. Cardiovascular: No chest pain, no palpitations. Gastrointestinal: No vomiting, no abdominal pain. Musculoskeletal: No back pain. Allergies: Coded Allergies: No Known Drug Allergies (Unverified , 06/18/17) Home Meds Active Scripts Digoxin (DIGOXIN) 250 Mcg Tablet, 1 TAB PO QDAY for 90 Days, #90 TAB 4 Refills Prov:EVANGELISTA CULVER MD 06/24/18 Ipratropium/Albuterol Sulfate (IPRAT-ALBUT 0.5-3(2.5) MG/3 ML) 3 Ml Ampul.neb, 3 ML IH 1-3XD, #90 KEATON Prov:EVANGELISTA CULVER MD 06/22/18 Apixaban (ELIQUIS) 5 Mg Tablet, 1 TAB PO BID for 90 Days, #180 TAB 2 Refills Prov:EVANGELISTA CULVER MD 04/23/18 Allopurinol (Allopurinol) 300 Mg Tablet, 1 TAB PO DAILY for 90 Days, #90 TAB Prov:EVANGELISTA CULVER MD 04/15/18 Metoprolol Succinate (METOPROLOL SUCCINATE) 100 Mg Tab.er.24h, 1 TAB PO BID for 90 Days, #180 TAB 4 Refills Prov:EVANGELISTA CULVER MD 03/12/18 Benzonatate (BENZONATATE) 200 Mg Capsule, 1 CAP PO TID PRN for COUGH, #30 CAP 0 Refills Prov:EVANGELISTA CULVER MD 02/23/18 Mirtazapine (MIRTAZAPINE) 7.5 Mg Tablet, 7.5 MG PO QHS for 90 Days, #90 TAB 4 Refills Prov:EVANGELISTA CULVER MD 01/21/18 Furosemide (FUROSEMIDE) 20 Mg Tablet, 1-2 TAB PO DAILY for 30 Days, #60 TAB 4 Refills Prov:EVANGELISTA CULVER MD 01/01/18 Enalapril Maleate (ENALAPRIL MALEATE) 2.5 Mg Tablet, 1 TAB PO DAILY, #90 TAB 4 Refills Prov:EVANGELISTA CULVER MD 07/21/17 Simvastatin (SIMVASTATIN) 40 Mg Tablet, 1 TAB PO HS, #90 TAB 4 Refills Prov:EVANGELISTA CULVER MD 07/21/17 Tamsulosin Hcl (FLOMAX) 0.4 Mg Cap.er.24h, 0.4 MG PO DAILY, #90 CAP 3 Refills Take 1 tablet at night for bladder irritation post seed implant Prov:EVANGELISTA CULVER MD 07/21/17 Albuterol Sulfate 90 Mcg/Act (PROAIR HFA 90 MCG/ACT) 8.5 Gm Hfa.aer.ad, 1-2 PUFF IH 3-4XD PRN for PRN for 90 Days, #3 INHALER 4 Refills Prov:EVANGELISTA CULVER MD 07/21/17 Phenylephrine HCl/Prometh HCl (Promethazine Vc Syrup) 5 Mg-6.25 Mg/5 Ml Syrup, 2 TSP PO BID PRN for CONGESTION for 7 Days, #1 BOT 1 Refill Prov:EVANGELISTA CULVER MD 07/18/17 Tiotropium [place] (SPIRIVA) 18 Mcg/Cap Inh, 1 CAP INH DAILY for 90 Days, #3 PACK 4 Refills Prov:EVANGELISTA CULVER MD 07/11/17 Omeprazole (OMEPRAZOLE) 40 Mg Capsule.dr, 1 CAP PO QDAY PRN for heart burn, #90 CAP 4 Refills 1 tab by mouth every day before meal Prov:EVANGELISTA CULVER MD 06/18/17 Reported Medications Formoterol Fumarate (PERFOROMIST) Unknown Strength Vial.neb, 1 IH BID 06/15/18 Budesonide (Budesonide) Unknown Strength Ampul.neb, 1 BID 06/15/18 Clotrimazole/Betamethasone Dip (CLOTRIMAZOLE-BETAMETHASONE CRM) 15 Gm Cream..g., 1 KEATON TP BID 06/18/17 Ferrous Sulfate (FERROUS SULFATE) 325 Mg Tablet, 1 TAB PO DAILY 06/18/17 Cholecalciferol (Vitamin D3) (VITAMIN D3) 2,000 Unit Tablet, 1 CAP PO DAILY 11/28/16 Oxygen (OXYGEN) Inha, 2 L INH QDAY, L 11/28/16 Discontinued Scripts Oxycodone Hcl (OXYCODONE HCL) 5 Mg Tablet, 5-10 MG PO 2-4XD, #30 TAB Prov:EVANGELISTA CULVER MD 06/25/18 Prednisone 10 Mg Tab (PREDNISONE 10 MG TAB) 10 Mg Tablet, 0.5-4 TAB PO QDAY, #32 TAB 4 tabs am x 3 days, 3 tabs am x 3 days, 2 tabs am x 3 days, 1 tab am x 3 days, 1/2 tab am x 3 days Prov:EVANGELISTA CULVER MD 06/22/18 Past Medical/Surgical History Past medical history for atrial fibrillation, hyperlipidemia, hypertension, COPD, chronic leukocytic leukemia, prostate cancer. Baseline White count is approximately 50,000 Hx Smoking: No (SMOKED 1 PPD FOR 30 YEARS. quit 2003) Smoking Status: Former Smoker Exposure to Second Hand Smoke?: No Hx Substance Use Disorder: No Hx Alcohol Use: Yes Constitutional Vital Sign - Last 24 Hours 07/18/18 07/18/18 07/18/18 07/18/18 08:11 08:20 08:26 08:30 Pulse ??? 87 B/P (MAP) 117/58 (77) 109/50 (69) Pulse Ox 94 07/18/18 07/18/18 07/18/18 07/18/18 08:40 08:41 08:56 09:00 Pulse 80 76 93 Resp 18 B/P (MAP) 109/50 103/64 (77) Pulse Ox 95 95 91 07/18/18 07/18/18 07/18/18 07/18/18 09:11 09:26 09:30 09:41 Pulse 84 82 74 B/P (MAP) 116/69 (85) Pulse Ox 97 97 99 07/18/18 07/18/18 09:56 10:22 Temp 97.7 Pulse 78 Pulse Ox 97 Physical Exam General Appearance: Alert, no distress. Eyes: [Pupils equal and round no pallor or injection.] ENT, Mouth: Ears: Tympanic membranes are normal. Nose: Some oozing from left naris Mouth: Mucous membranes are moist. Throat: No erythema or exudates there is no tonsillar hypertrophy and uvula is midline. Musculoskeletal: Neck is supple non tender, no adenopathy. Skin: Warm and dry, no rashes. Medical Decision Making Data Points Result Diagram: 07/18/18 0936 Laboratory Hematology Test 07/18/18 09:36 Red Blood Count 2.99 M/uL (4.00-5.60) Mean Corpuscular Volume 92.5 fL (80.0-96.0) Mean Corpuscular Hemoglobin 29.4 pg (26.0-33.0) Mean Corpuscular Hemoglobin Concent 31.8 g/dL (32.0-36.0) Red Cell Distribution Width 16.5 % (11.5-14.5) Mean Platelet Volume 8.3 fL (7.2-11.1) Neutrophils (%) (Auto) % (39.4-72.5) Lymphocytes (%) (Auto) % (17.6-49.6) Monocytes (%) (Auto) % (4.1-12.4) Eosinophils (%) (Auto) % (0.4-6.7) Basophils (%) (Auto) % (0.3-1.4) Nucleated RBC Relative Count (auto) /100WBC Neutrophils # (Auto) K/uL (2.0-7.4) Lymphocytes # (Auto) K/uL (1.3-3.6) Monocytes # (Auto) K/uL (0.3-1.0) Eosinophils # (Auto) K/uL (0.0-0.5) Basophils # (Auto) K/uL (0.0-0.1) Nucleated RBC Absolute Count (auto) K/uL Neutrophils % (Manual) 9 % (39.4-72.5) Band Neutrophils % 2 % Lymphocytes % (Manual) 62 % (17.6-49.6) Atypical Lymphocytes % 25 % Monocytes % (Manual) 2 % (4.1-12.4) Eosinophils % (Manual) 0 % (0.4-6.7) Basophils % (Manual) 0 % (0.3-1.4) Platelet Estimate Low Peripheral Blood Smear Yes Y/N Chemistry Test 07/18/18 09:36 White Blood Count 52.8 k/uL (4.5-11.0) Red Blood Count 2.99 M/uL (4.00-5.60) Hemoglobin 8.8 g/dL (14.0-18.0) Hematocrit 27.6 % (42.0-52.0) Mean Corpuscular Volume 92.5 fL (80.0-96.0) Mean Corpuscular Hemoglobin 29.4 pg (26.0-33.0) Mean Corpuscular Hemoglobin Concent 31.8 g/dL (32.0-36.0) Red Cell Distribution Width 16.5 % (11.5-14.5) Platelet Count 144 K/uL (150-450) Mean Platelet Volume 8.3 fL (7.2-11.1) Neutrophils (%) (Auto) % (39.4-72.5) Lymphocytes (%) (Auto) % (17.6-49.6) Monocytes (%) (Auto) % (4.1-12.4) Eosinophils (%) (Auto) % (0.4-6.7) Basophils (%) (Auto) % (0.3-1.4) Nucleated RBC Relative Count (auto) /100WBC Neutrophils # (Auto) K/uL (2.0-7.4) Lymphocytes # (Auto) K/uL (1.3-3.6) Monocytes # (Auto) K/uL (0.3-1.0) Eosinophils # (Auto) K/uL (0.0-0.5) Basophils # (Auto) K/uL (0.0-0.1) Nucleated RBC Absolute Count (auto) K/uL Neutrophils % (Manual) 9 % (39.4-72.5) Band Neutrophils % 2 % Lymphocytes % (Manual) 62 % (17.6-49.6) Atypical Lymphocytes % 25 % Monocytes % (Manual) 2 % (4.1-12.4) Eosinophils % (Manual) 0 % (0.4-6.7) Basophils % (Manual) 0 % (0.3-1.4) Platelet Estimate Low Peripheral Blood Smear Yes Y/N ED Course/Re-evaluation ED Course 07/18/2018 9:26:31 am after infusion of Kodak-Synephrine, a medium-sized Rhino Rocket was placed in the left naris 07/18/2018 10:07:05 am bleeding seems to be controlled after placement of Rhino Rocket. We'll discharge patient home have him schedule a follow-up appointment either with his primary care provider or with Dr. Pastor on Friday for removal of packing. Decision to Disposition Date: Jul 18, 2018 Decision to Disposition Time: 10:06 Depart Departure Latest Vital Signs Vital Signs Date Time Temp Pulse Resp B/P (MAP) Pulse Ox O2 Delivery O2 Flow Rate FiO2 07/18/18 10:22 97.7 07/18/18 09:56 78 97 07/18/18 09:30 116/69 (85) 07/18/18 08:40 18 Impression: Primary Impression: Nosebleed Condition: Improved Disposition: HOME OR SELF-CARE Referrals: EVANGELISTA CULVER MD (PCP) BAYRON PASTOR JR, MD Patient Instructions: Nosebleed (GEN) Additional Instructions: Call on Friday, July 20 to schedule an appointment either with your primary care provider, Dr Culver, Dr. Bayron Pastor who is an ear nose and throat doctor to be reevaluated to determine if you nasal packing can be removed. MARCEL NUNES MD Jul 18, 2018 09:14
[2018-07-18 09:30] VITALS: BP 116/69
[2018-07-18 09:44] LABS: PLATELET COUNT, AUTOMATED 144 K/uL (150-450)
[2018-07-18] MEDS ORDERED: PHENYLEPHRINE 0.5% 15 ML BTL ONE (11:05)
[2018-07-18] MEDS ORDERED: CEPH500T7 PO (17:18)
[2018-07-21] MEDS ORDERED: ALLO-2 PO (16:29)
== END 2018-07-18 10:22 | disposition home or self-care (01) ==
LOC: ER 09:16
DX: R04.0 Epistaxis (principal)
CPT/HCPCS: 30901; 36415; 85025; 99282; A9270

== ENCOUNTER 2018-07-18 16:01 | Emergency (ER) | payer MEDICARE ==
[2016-05-30 17:17] VITALS: Wt 81.8 kg
[2018-07-18] MEDS ORDERED: ENT KIT ONE ×2 (16:05→16:17)
--- NOTE | 2018-07-18 16:07 | ER Report ---
History and Physical Time Seen By MD: 16:06 HPI/ROS CHIEF COMPLAINT: nosebleed HISTORY OF PRESENT ILLNESS: Pt here for evaluation of recurrent nosebleed. Pt states nosebleed started 24 hours ago. Pt at home tried pressure and afrin to stop bleeding. Came in this am and had it packed but bleeding restarted once home. now dripping in front and down back of throat. Pt is on eliquis for afib. Pt denies chest pain or sob. REVIEW OF SYSTEMS: Constitutional: No fever, no chills. Eyes: No discharge. ENT: No sore throat. + nose bleed Cardiovascular: No chest pain, no palpitations. Respiratory: No cough, no shortness of breath. Gastrointestinal: No abdominal pain, no vomiting. Genitourinary: No hematuria. Musculoskeletal: No back pain. Skin: No rashes. Neurological: No headache. Allergies: Coded Allergies: No Known Drug Allergies (Unverified , 06/18/17) Home Meds Active Scripts Cephalexin 500 Mg Tab (KEFLEX 500 MG TAB) 500 Mg Tablet, 500 MG PO BID, #10 TAB Prov:MALIK GOODE DO 07/18/18 Digoxin (DIGOXIN) 250 Mcg Tablet, 1 TAB PO QDAY for 90 Days, #90 TAB 4 Refills Prov:EVANGELISTA CULVER MD 06/24/18 Ipratropium/Albuterol Sulfate (IPRAT-ALBUT 0.5-3(2.5) MG/3 ML) 3 Ml Ampul.neb, 3 ML IH 1-3XD, #90 KEATON Prov:EVANGELISTA CULVER MD 06/22/18 Apixaban (ELIQUIS) 5 Mg Tablet, 1 TAB PO BID for 90 Days, #180 TAB 2 Refills Prov:EVANGELISTA CULVER MD 04/23/18 Allopurinol (Allopurinol) 300 Mg Tablet, 1 TAB PO DAILY for 90 Days, #90 TAB Prov:EVANGELISTA CULVER MD 04/15/18 Metoprolol Succinate (METOPROLOL SUCCINATE) 100 Mg Tab.er.24h, 1 TAB PO BID for 90 Days, #180 TAB 4 Refills Prov:EVANGELISTA CULVER MD 03/12/18 Benzonatate (BENZONATATE) 200 Mg Capsule, 1 CAP PO TID PRN for COUGH, #30 CAP 0 Refills Prov:EVANGELISTA CULVER MD 02/23/18 Mirtazapine (MIRTAZAPINE) 7.5 Mg Tablet, 7.5 MG PO QHS for 90 Days, #90 TAB 4 Refills Prov:EVANGELISTA CULVER MD 01/21/18 Furosemide (FUROSEMIDE) 20 Mg Tablet, 1-2 TAB PO DAILY for 30 Days, #60 TAB 4 Refills Prov:EVANGELISTA CULVER MD 01/01/18 Enalapril Maleate (ENALAPRIL MALEATE) 2.5 Mg Tablet, 1 TAB PO DAILY, #90 TAB 4 Refills Prov:EVANGELISTA CULVER MD 07/21/17 Simvastatin (SIMVASTATIN) 40 Mg Tablet, 1 TAB PO HS, #90 TAB 4 Refills Prov:EVANGELISTA CULVER MD 07/21/17 Tamsulosin Hcl (FLOMAX) 0.4 Mg Cap.er.24h, 0.4 MG PO DAILY, #90 CAP 3 Refills Take 1 tablet at night for bladder irritation post seed implant Prov:EVANGELISTA CULVER MD 07/21/17 Albuterol Sulfate 90 Mcg/Act (PROAIR HFA 90 MCG/ACT) 8.5 Gm Hfa.aer.ad, 1-2 PUFF IH 3-4XD PRN for PRN for 90 Days, #3 INHALER 4 Refills Prov:EVANGELISTA CULVER MD 07/21/17 Phenylephrine HCl/Prometh HCl (Promethazine Vc Syrup) 5 Mg-6.25 Mg/5 Ml Syrup, 2 TSP PO BID PRN for CONGESTION for 7 Days, #1 BOT 1 Refill Prov:EVANGELISTA CULVRE MD 07/18/17 Tiotropium [place] (SPIRIVA) 18 Mcg/Cap Inh, 1 CAP INH DAILY for 90 Days, #3 PACK 4 Refills Prov:EVANGELISTA CULVER MD 07/11/17 Omeprazole (OMEPRAZOLE) 40 Mg Capsule.dr, 1 CAP PO QDAY PRN for heart burn, #90 CAP 4 Refills 1 tab by mouth every day before meal Prov:EVANGELISTA CUVLER MD 06/18/17 Reported Medications Formoterol Fumarate (PERFOROMIST) Unknown Strength Vial.neb, 1 IH BID 06/15/18 Budesonide (Budesonide) Unknown Strength Ampul.neb, 1 BID 06/15/18 Clotrimazole/Betamethasone Dip (CLOTRIMAZOLE-BETAMETHASONE CRM) 15 Gm Cream..g., 1 KEATON TP BID 06/18/17 Ferrous Sulfate (FERROUS SULFATE) 325 Mg Tablet, 1 TAB PO DAILY 06/18/17 Cholecalciferol (Vitamin D3) (VITAMIN D3) 2,000 Unit Tablet, 1 CAP PO DAILY 11/28/16 Oxygen (OXYGEN) Inha, 2 L INH QDAY, L 11/28/16 Discontinued Scripts Oxycodone Hcl (OXYCODONE HCL) 5 Mg Tablet, 5-10 MG PO 2-4XD, #30 TAB Prov:EVANGELISTA CULVER MD 06/25/18 Prednisone 10 Mg Tab (PREDNISONE 10 MG TAB) 10 Mg Tablet, 0.5-4 TAB PO QDAY, #32 TAB 4 tabs am x 3 days, 3 tabs am x 3 days, 2 tabs am x 3 days, 1 tab am x 3 days, 1/2 tab am x 3 days Prov:EVANGELISTA CULVER MD 06/22/18 Past Medical/Surgical History Past medical history for atrial fibrillation, hyperlipidemia, hypertension, COPD, chronic leukocytic leukemia, prostate cancer. Baseline White count is approximately 50,000 Reviewed Nurses Notes: Yes Old Medical Records Reviewed: Yes Hx Smoking: No (SMOKED 1 PPD FOR 30 YEARS. quit 2003) Smoking Status: Former Smoker Exposure to Second Hand Smoke?: No Hx Substance Use Disorder: No Hx Alcohol Use: Yes (hx of being an alcoholic but sober for 8 months. ) Constitutional Vital Sign - Last 24 Hours 07/18/18 16:11 Pulse 112 Resp 25 B/P (MAP) 154/64 Pulse Ox 62 O2 Delivery Nasal Cannula Physical Exam General Appearance: The patient is alert, has no immediate need for airway protection and no signs of toxicity. Eyes: Pupils equal and round no pallor or injection, EOMI ENT: + active bleeding identified in Left nares around packing, + large clot on back of throat coming from nasal pharnx Respiratory: There are no retractions, lungs are clear to auscultation. Cardiovascular: Regular rate and rhythm. pulses are equal and symmetrical Neurological: Cranial nerves II-XII grossly intact, no sensory or motor loss DIFFERENTIAL DIAGNOSIS: After history and physical exam differential diagnosis was considered for nose bleed Medical Decision Making Data Points Result Diagram: 07/18/18 1631 Laboratory Hematology Test 3/2/19 16:31 Red Blood Count 3.21 M/uL (4.00-5.60) Mean Corpuscular Volume 92.6 fL (80.0-96.0) Mean Corpuscular Hemoglobin 29.2 pg (26.0-33.0) Mean Corpuscular Hemoglobin Concent 31.5 g/dL (32.0-36.0) Red Cell Distribution Width 16.8 % (11.5-14.5) Mean Platelet Volume 8.0 fL (7.2-11.1) Neutrophils (%) (Auto) 9.8 % (39.4-72.5) Lymphocytes (%) (Auto) 88.5 % (17.6-49.6) Monocytes (%) (Auto) 1.0 % (4.1-12.4) Eosinophils (%) (Auto) 0.1 % (0.4-6.7) Basophils (%) (Auto) 0.6 % (0.3-1.4) Nucleated RBC Relative Count (auto) 0.0 /100WBC Neutrophils # (Auto) 5.3 K/uL (2.0-7.4) Lymphocytes # (Auto) 47.9 K/uL (1.3-3.6) Monocytes # (Auto) 0.5 K/uL (0.3-1.0) Eosinophils # (Auto) 0.1 K/uL (0.0-0.5) Basophils # (Auto) 0.3 K/uL (0.0-0.1) Nucleated RBC Absolute Count (auto) 0.02 K/uL Chemistry Test 07/18/18 16:31 White Blood Count 54.2 k/uL (4.5-11.0) Red Blood Count 3.21 M/uL (4.00-5.60) Hemoglobin 9.4 g/dL (14.0-18.0) Hematocrit 29.7 % (42.0-52.0) Mean Corpuscular Volume 92.6 fL (80.0-96.0) Mean Corpuscular Hemoglobin 29.2 pg (26.0-33.0) Mean Corpuscular Hemoglobin Concent 31.5 g/dL (32.0-36.0) Red Cell Distribution Width 16.8 % (11.5-14.5) Platelet Count 153 K/uL (150-450) Mean Platelet Volume 8.0 fL (7.2-11.1) Neutrophils (%) (Auto) 9.8 % (39.4-72.5) Lymphocytes (%) (Auto) 88.5 % (17.6-49.6) Monocytes (%) (Auto) 1.0 % (4.1-12.4) Eosinophils (%) (Auto) 0.1 % (0.4-6.7) Basophils (%) (Auto) 0.6 % (0.3-1.4) Nucleated RBC Relative Count (auto) 0.0 /100WBC Neutrophils # (Auto) 5.3 K/uL (2.0-7.4) Lymphocytes # (Auto) 47.9 K/uL (1.3-3.6) Monocytes # (Auto) 0.5 K/uL (0.3-1.0) Eosinophils # (Auto) 0.1 K/uL (0.0-0.5) Basophils # (Auto) 0.3 K/uL (0.0-0.1) Nucleated RBC Absolute Count (auto) 0.02 K/uL ED Course/Re-evaluation ED Course Recheck hb Removed current packing and attempted to stop bleeding with topical epi packing and pressure, but was unsuccessful. Unable to find source of bleeding in nose. 07/18/2018 4:41:06 pm placed a rapid rhino in left nares, used 7.5cm due to unknown source. will monitor. 07/18/2018 5:10:43 pm Pt has not had any bleeding since rapid rhino placed. Pts hb is stable. Will start on abx due to pt will need to keep the packing in for 5 days. 07/18/2018 5:37:33 pm Pt states he will call Dr. Culver on Friday to arrange an appt with ENT or her later in the week "i've seen Dr. pastor before and dr. Abdiel ibarra was the one who arranged it". Pt understands that he can always return to ED as needed. Decision to Disposition Date: Jul 18, 2018 Decision to Disposition Time: 17:11 Depart Departure Latest Vital Signs Vital Signs Date Time Temp Pulse Resp B/P (MAP) Pulse Ox O2 Delivery O2 Flow Rate FiO2 07/18/18 16:11 112 25 154/64 62 Nasal Cannula Impression: Primary Impression: Nosebleed Condition: Improved Disposition: HOME OR SELF-CARE Referrals: EVANGELISTA CULVER MD (PCP) 5 Days RICKEY PASTOR JR, MD 5 Days New Scripts Cephalexin 500 Mg Tab (KEFLEX 500 MG TAB) 500 Mg Tablet 500 MG PO BID, #10 TAB Prov: MALIK GOODE DO 07/18/18 Patient Instructions: Nosebleed (ED) Additional Instructions: We placed a new packing in your nose. Because of the eliquis you will need to keep that packing in longer (Friday, or Friday). Call your family doctor office on Friday to make an appointment to be seen later in the week to have packing removed. If she does not feel comfortable removing the packing then you can follow up with ENT specialist or return to the emergency department. You can also return to the emergency department if you are unable to see either of the two doctors. Because you are going to have packing in your nose for 4-6 days we are starting you on antibiotics twice a day. A script was sent to [facility]. MALIK GOODE DO Jul 18, 2018 16:06
[2018-07-18 16:37] LABS: PLATELET COUNT, AUTOMATED 153 K/uL (150-450)
[2018-07-18] MEDS ORDERED: CEPH500T7 PO (17:18)
[2018-07-18] MEDS ORDERED: CEPHALEXIN MONO 500 MG CAP PO ONE (17:40)
[2018-07-18] MEDS ORDERED: EPINEPHrine 0.1% NA SOL 30 ML ONE (17:55)
[2018-07-21] MEDS ORDERED: ALLO-2 PO (16:29)
== END 2018-07-18 18:07 | disposition home or self-care (01) ==
LOC: ER 16:12
DX: R04.0 Epistaxis (principal); Z79.01 Long term (current) use of anticoagulants
CPT/HCPCS: 30901; 36415; 85025; 99282; A9270

== ENCOUNTER 2018-08-03 13:24 | Emergency (ER) | payer MEDICARE ==
[2016-05-30 17:17] VITALS: Wt 77.1 kg
--- NOTE | 2018-08-03 13:29 | ER Report ---
History and Physical Time Seen By MD: 13:28 Hx. of Stated Complaint: COUGH LEFT SIDED ABDOMINAL PAIN HPI/ROS 73 YEAR OLD WITH H/O COPD SOB X 2 WEEKS ON KEFLEX NO BETTER. HAS BEEN OFF ELIQUIS X 7 DAYS FOR NOSEBLEEDS . LEFT SIDED ABDOMINAL PAIN NO BM X 2 DAYS ON ORAL IRON, H/O CLL IN REMISSION . Remainder of the 14 system rev: Yes Allergies: Coded Allergies: No Known Drug Allergies (Unverified , 08/03/18) Home Meds Active Scripts Furosemide (FUROSEMIDE) 20 Mg Tablet, 1-2 TAB PO DAILY for 90 Days, #180 TAB Prov:EVANGELISTA CULVER MD 07/23/18 Allopurinol (Allopurinol) 300 Mg Tablet, 1 TAB PO DAILY for 90 Days, #90 TAB 4 Refills Prov:EVANGELISTA CULVER MD 07/21/18 Digoxin (DIGOXIN) 250 Mcg Tablet, 1 TAB PO QDAY for 90 Days, #90 TAB 4 Refills Prov:EVANGELISTA CULVER MD 06/24/18 Ipratropium/Albuterol Sulfate (IPRAT-ALBUT 0.5-3(2.5) MG/3 ML) 3 Ml Ampul.neb, 3 ML IH 1-3XD, #90 [place] Prov:EVANGELISTA CULVER MD 06/22/18 Apixaban (ELIQUIS) 5 Mg Tablet, 1 TAB PO BID for 90 Days, #180 TAB 2 Refills Prov:EVANGELISTA CULVER MD 04/23/18 Metoprolol Succinate (METOPROLOL SUCCINATE) 100 Mg Tab.er.24h, 1 TAB PO BID for 90 Days, #180 TAB 4 Refills Prov:EVANGELISTA CULVER MD 03/12/18 Benzonatate (BENZONATATE) 200 Mg Capsule, 1 CAP PO TID PRN for COUGH, #30 CAP 0 Refills Prov:EVANGELISTA CULVER MD 02/23/18 Mirtazapine (MIRTAZAPINE) 7.5 Mg Tablet, 7.5 MG PO QHS for 90 Days, #90 TAB 4 Refills Prov:EVANGELISTA CULVER MD 01/21/18 Enalapril Maleate (ENALAPRIL MALEATE) 2.5 Mg Tablet, 1 TAB PO DAILY, #90 TAB 4 Refills Prov:EVANGELISTA CULVER MD 07/21/17 Simvastatin (SIMVASTATIN) 40 Mg Tablet, 1 TAB PO HS, #90 TAB 4 Refills Prov:EVANGELISTA CULVER MD 07/21/17 Tamsulosin Hcl (FLOMAX) 0.4 Mg Cap.er.24h, 0.4 MG PO DAILY, #90 CAP 3 Refills Take 1 tablet at night for bladder irritation post seed implant Prov:EVANGELISTA CULVER MD 07/21/17 Albuterol Sulfate 90 Mcg/Act (PROAIR HFA 90 MCG/ACT) 8.5 Gm Hfa.aer.ad, 1-2 PUFF IH 3-4XD PRN for PRN for 90 Days, #3 INHALER 4 Refills Prov:EVANGELISTA CULVER MD 07/21/17 Tiotropium [place] (SPIRIVA) 18 Mcg/Cap Inh, 1 CAP INH DAILY for 90 Days, #3 PACK 4 Refills Prov:EVANGELISTA CULVER MD 07/11/17 Omeprazole (OMEPRAZOLE) 40 Mg Capsule.dr, 1 CAP PO QDAY PRN for heart burn, #90 CAP 4 Refills 1 tab by mouth every day before meal Prov:EVANGELISTA CULVER MD 06/18/17 Reported Medications Formoterol Fumarate (PERFOROMIST) Unknown Strength Vial.neb, 1 IH BID 06/15/18 Budesonide (Budesonide) Unknown Strength Ampul.neb, 1 BID 06/15/18 Ferrous Sulfate (FERROUS SULFATE) 325 Mg Tablet, 1 TAB PO BID 06/18/17 Cholecalciferol (Vitamin D3) (VITAMIN D3) 2,000 Unit Tablet, 1 CAP PO DAILY 11/28/16 Oxygen (OXYGEN) Inha, 2 L INH QDAY, L 11/28/16 Discontinued Reported Medications Clotrimazole/Betamethasone Dip (CLOTRIMAZOLE-BETAMETHASONE CRM) 15 Gm Cream..g., 1 KEATON TP BID 06/18/17 Discontinued Scripts Cephalexin 500 Mg Tab (KEFLEX 500 MG TAB) 500 Mg Tablet, 500 MG PO BID, #10 TAB Prov:MALIK GOODE DO 07/18/18 Phenylephrine HCl/Prometh HCl (Promethazine Vc Syrup) 5 Mg-6.25 Mg/5 Ml Syrup, 2 TSP PO BID PRN for CONGESTION for 7 Days, #1 BOT 1 Refill Prov:EVANGELISTA CULVER MD 07/18/17 Past Medical/Surgical History Atrial fibrillation on per [facility], hypertension, ascites, sleep apnea, COPD, pulmonary hypertension, oxygen dependent, sleep apnea, CLL Reviewed Nurses Notes: Yes Old Medical Records Reviewed: Yes Hx Smoking: No (SMOKED 1 PPD FOR 30 YEARS. quit 2003) Smoking Status: Former Smoker Exposure to Second Hand Smoke?: No Hx Substance Use Disorder: No Hx Alcohol Use: Yes (hx of being an alcoholic but sober for 8 months. ) Family History of: HTN Constitutional Vital Sign - Last 24 Hours 08/03/18 08/03/18 08/03/18 08/03/18 13:28 13:30 13:39 13:45 Temp 98.1 Pulse 107 Resp 24 B/P (MAP) 107/87 107/87 (94) 122/63 (82) Pulse Ox 76 O2 Delivery Nasal Cannula O2 Flow Rate 4.0 08/03/18 08/03/18 08/03/18 08/03/18 13:54 14:00 14:08 14:08 Pulse 97 97 Resp 34 28 B/P (MAP) 120/48 (72) Pulse Ox 98 99 O2 Delivery Non-Rebreather O2 Flow Rate 15.0 08/03/18 08/03/18 08/03/18 08/03/18 14:16 14:24 14:54 14:59 Pulse 91 101 81 91 Resp 28 12 10 13 Pulse Ox 90 99 99 08/03/18 08/03/18 08/03/18 08/03/18 15:29 15:59 16:29 16:34 Pulse 79 90 78 81 Resp 23 19 28 24 Pulse Ox 99 94 95 100 08/03/18 08/03/18 08/03/18 08/03/18 16:49 17:04 17:19 17:34 Pulse 77 89 81 83 Resp 24 26 23 20 Pulse Ox 99 99 98 94 08/03/18 08/03/18 08/03/18 08/03/18 17:49 18:04 18:09 18:15 Pulse 84 81 Resp 15 30 B/P (MAP) 117/64 (81) 113/71 (85) Pulse Ox 98 99 08/03/18 08/03/18 08/03/18 08/03/18 18:19 18:30 18:35 18:50 Pulse 87 77 87 Resp 10 21 B/P (MAP) 125/53 (77) 135/51 (79) Pulse Ox 98 96 08/03/18 08/03/18 08/03/18 08/03/18 19:05 19:15 19:20 19:30 Pulse 79 87 Resp 21 27 B/P (MAP) 118/54 (75) 94/71 (79) Pulse Ox 93 99 08/03/18 08/03/18 08/03/18 19:35 19:45 19:50 Pulse 79 86 Resp 18 14 B/P (MAP) 120/80 (93) Pulse Ox 98 96 Physical Exam 73 YEAR OLD CHRONICALLY ILL APPEARING. SOB SATS 80'S PLACED ON NRB . LUNGS CRACKLES BILATERALLY, HR IRREGULAR ABDOMEN DISTENDED, LUQ ABDOMIONAL PAIN . BS SLUGGISH Medical Decision Making Data Points Result Diagram: 08/03/18 1412 08/03/18 1412 Laboratory Hematology Test 08/03/18 14:12 08/03/18 14:19 Red Blood Count 3.20 M/uL (4.00-5.60) Mean Corpuscular Volume 95.2 fL (80.0-96.0) Mean Corpuscular Hemoglobin 28.8 pg (26.0-33.0) Mean Corpuscular Hemoglobin Concent 30.2 g/dL (32.0-36.0) Red Cell Distribution Width 17.5 % (11.5-14.5) Mean Platelet Volume 7.9 fL (7.2-11.1) Neutrophils (%) (Auto) % (39.4-72.5) Lymphocytes (%) (Auto) % (17.6-49.6) Monocytes (%) (Auto) % (4.1-12.4) Eosinophils (%) (Auto) % (0.4-6.7) Basophils (%) (Auto) % (0.3-1.4) Nucleated RBC Relative Count (auto) /100WBC Neutrophils # (Auto) K/uL (2.0-7.4) Lymphocytes # (Auto) K/uL (1.3-3.6) Monocytes # (Auto) K/uL (0.3-1.0) Eosinophils # (Auto) K/uL (0.0-0.5) Basophils # (Auto) K/uL (0.0-0.1) Nucleated RBC Absolute Count (auto) K/uL Neutrophils % (Manual) 9 % (39.4-72.5) Lymphocytes % (Manual) 87 % (17.6-49.6) Monocytes % (Manual) 0 % (4.1-12.4) Eosinophils % (Manual) 0 % (0.4-6.7) Basophils % (Manual) 0 % (0.3-1.4) Blast Cells % 4 % Peripheral Blood Smear Yes Y/N D-Dimer Quantitative (PE/DVT) 1.91 ug/ml (0-0.50) Sodium Level 136 mmol/L (137-145) Potassium Level 4.8 mmol/L (3.5-5.0) Chloride Level 91 mmol/L (98-107) Carbon Dioxide Level 37 mmol/L (22-30) Blood Urea Nitrogen 28 mg/dl (9-21) Creatinine 1.30 mg/dl (0.66-1.25) Glomerular Filtration Rate Calc 54.3 Random Glucose 103 mg/dl (75-110) Lactate 0.9 mmol/L (0.7-2.1) Calcium Level 9.8 mg/dl (8.4-10.2) Magnesium Level 2.4 mg/dl (1.7-2.2) Total Bilirubin 0.9 mg/dl (0.2-1.3) Aspartate Amino Transf (AST/SGOT) 48 U/L (0-35) Alanine Aminotransferase (ALT/SGPT) 38 U/L (0-56) Alkaline Phosphatase 275 U/L (0-126) Troponin I < 0.012 ng/ml B-Type Natriuretic Peptide 453 pg/ml (0-100) Total Protein 6.8 g/dl (6.3-8.2) Albumin 4.3 g/dl (3.5-5.0) Lipase 95 U/L (23-300) Urine Color Straw Urine Clarity Clear Urine pH 5.0 pH (4.8-9.5) Urine Specific [place] 1.006 Urine Protein Negative mg/dL (NEGATIVE) Urine Glucose (UA) Negative mg/dL (NEGATIVE) Urine Ketones Negative mg/dL (NEGATIVE) Urine Blood Small (NEGATIVE) Urine Nitrite Negative (NEGATIVE) Urine Bilirubin Negative (NEGATIVE) Urine Urobilinogen Negative mg/dL (0.2-1.9) Urine Leukocyte Esterase Negative (NEGATIVE) Urine RBC <1 /HPF (0-2/HPF) Urine WBC <1 /HPF (0-5/HPF) Urine Squamous Epithelial Cells None /LPF (</=FEW) Urine Bacteria Negative /HPF (NONE-FEW) Urine Hyaline Casts Few /LPF (NONE-FEW) Urine Mucus None /HPF (NONE-FEW) Chemistry Test 08/03/18 14:12 08/03/18 14:19 White Blood Count 58.1 k/uL (4.5-11.0) Red Blood Count 3.20 M/uL (4.00-5.60) Hemoglobin 9.2 g/dL (14.0-18.0) Hematocrit 30.4 % (42.0-52.0) Mean Corpuscular Volume 95.2 fL (80.0-96.0) Mean Corpuscular Hemoglobin 28.8 pg (26.0-33.0) Mean Corpuscular Hemoglobin Concent 30.2 g/dL (32.0-36.0) Red Cell Distribution Width 17.5 % (11.5-14.5) Platelet Count 183 K/uL (150-450) Mean Platelet Volume 7.9 fL (7.2-11.1) Neutrophils (%) (Auto) % (39.4-72.5) Lymphocytes (%) (Auto) % (17.6-49.6) Monocytes (%) (Auto) % (4.1-12.4) Eosinophils (%) (Auto) % (0.4-6.7) Basophils (%) (Auto) % (0.3-1.4) Nucleated RBC Relative Count (auto) /100WBC Neutrophils # (Auto) K/uL (2.0-7.4) Lymphocytes # (Auto) K/uL (1.3-3.6) Monocytes # (Auto) K/uL (0.3-1.0) Eosinophils # (Auto) K/uL (0.0-0.5) Basophils # (Auto) K/uL (0.0-0.1) Nucleated RBC Absolute Count (auto) K/uL Neutrophils % (Manual) 9 % (39.4-72.5) Lymphocytes % (Manual) 87 % (17.6-49.6) Monocytes % (Manual) 0 % (4.1-12.4) Eosinophils % (Manual) 0 % (0.4-6.7) Basophils % (Manual) 0 % (0.3-1.4) Blast Cells % 4 % Peripheral Blood Smear Yes Y/N D-Dimer Quantitative (PE/DVT) 1.91 ug/ml (0-0.50) Glomerular Filtration Rate Calc 54.3 Lactate 0.9 mmol/L (0.7-2.1) Calcium Level 9.8 mg/dl (8.4-10.2) Magnesium Level 2.4 mg/dl (1.7-2.2) Total Bilirubin 0.9 mg/dl (0.2-1.3) Aspartate Amino Transf (AST/SGOT) 48 U/L (0-35) Alanine Aminotransferase (ALT/SGPT) 38 U/L (0-56) Alkaline Phosphatase 275 U/L (0-126) Troponin I < 0.012 ng/ml B-Type Natriuretic Peptide 453 pg/ml (0-100) Total Protein 6.8 g/dl (6.3-8.2) Albumin 4.3 g/dl (3.5-5.0) Lipase 95 U/L (23-300) Urine Color Straw Urine Clarity Clear Urine pH 5.0 pH (4.8-9.5) Urine Specific [place] 1.006 Urine Protein Negative mg/dL (NEGATIVE) Urine Glucose (UA) Negative mg/dL (NEGATIVE) Urine Ketones Negative mg/dL (NEGATIVE) Urine Blood Small (NEGATIVE) Urine Nitrite Negative (NEGATIVE) Urine Bilirubin Negative (NEGATIVE) Urine Urobilinogen Negative mg/dL (0.2-1.9) Urine Leukocyte Esterase Negative (NEGATIVE) Urine RBC <1 /HPF (0-2/HPF) Urine WBC <1 /HPF (0-5/HPF) Urine Squamous Epithelial Cells None /LPF (</=FEW) Urine Bacteria Negative /HPF (NONE-FEW) Urine Hyaline Casts Few /LPF (NONE-FEW) Urine Mucus None /HPF (NONE-FEW) Coagulation Test 08/03/18 14:12 D-Dimer Quantitative (PE/DVT) 1.91 ug/ml Urinalysis Test 08/03/18 14:19 Urine Color Straw Urine Clarity Clear Urine pH 5.0 pH (4.8-9.5) Urine Specific [place] 1.006 Urine Protein Negative mg/dL (NEGATIVE) Urine Glucose (UA) Negative mg/dL (NEGATIVE) Urine Ketones Negative mg/dL (NEGATIVE) Urine Blood Small (NEGATIVE) Urine Nitrite Negative (NEGATIVE) Urine Bilirubin Negative (NEGATIVE) Urine Urobilinogen Negative mg/dL (0.2-1.9) Urine Leukocyte Esterase Negative (NEGATIVE) Urine RBC <1 /HPF (0-2/HPF) Urine WBC <1 /HPF (0-5/HPF) Urine Squamous Epithelial Cells None /LPF (</=FEW) Urine Bacteria Negative /HPF (NONE-FEW) Urine Hyaline Casts Few /LPF (NONE-FEW) Urine Mucus None /HPF (NONE-FEW) EKG/Imaging EKG Interpretation EKG at 14 oh for A. fib ventricular rate 88 Monitor Interpretation: Atrial Fibrillation Imaging FACILITY: [facility] PATIENT NAME: Juan Manzano : 1945 MR: [id number] V: [id number] EXAM DATE: ORDERING PHYSICIAN: MELINA DODD TECHNOLOGIST: Location: [facility] Patient: Juan Manzano : 1945 Visit/Account:[id number] Date of Sevice: 08/03/2018 CT abdomen and pelvis with IV contrast Indication: Left abdominal pain. Comparison: 05/09/2014.. Technique: Axial CT images were obtained through the abdomen and pelvis during injection of nonionic iodinated intravenous contrast. Reformatted coronal and sagittal images were also obtained. One of the following dose optimization techniques was utilized in the performance of this exam: Automated exposure control; adjustment of the mA and/or kV according to the patient's size; or use of an iterative rec onstruction technique. Specific details can be referenced in the facility's radiology CT exam operational policy. Contrast: 75 ml of Isovue-370 IV contrast. Findings: Lower lung horn: Small bilateral pleural effusions. Consolidation left posterior lower lobe and early consolidation right inferior middle lobe. Mild cardiomegaly. Moderate pericardial fluid. Liver: Diffusely heterogeneous and mottled appearance without focal lesion. The hepatic veins are not well visualized. The portal veins appear to be patent. Biliary: Gallbladder appears unremarkable as well as the intra and extra hepatic biliary system. Pancreas: Normal appearance. Spleen: Spleen is enlarged measuring 16 cm and the craniocaudad dimension. Central spleen shows a stable 1.2 cm hypodensity. No other focal abnormality. Adrenal glands: Unremarkable. Kidneys / retroperitoneum: The right kidney does show 2 mm stone in the collecting system without hydronephrosis. The left kidney shows no stone or hydronephrosis. No discrete renal lesions. Bowel / peritoneum / mesenteries: The colon shows no focal abnormality. The appendix is normal. The small bowel shows no focal abnormality or obstruction but the stomach is grossly normal. Small small amount free fluid seen in the pelvis in the paracolic gutter regions. No fluid collections, free air or focal areas of inflammation. Lymph node assessment: There are multiple enlarged lymph nodes which are significantly enlarged compared the previous examination. The periaortic adenopathy is more prominent with the largest on the left side measuring at least 5.9 x 4.6 cm. Periportal adenopathy with largest measuring approximately 3.0 x 1.5 cm. Gastrohepatic adenopathy with largest measuring 1.0 x 2.0 cm, bilateral iliac adenopathy with largest on left side measuring 6.7 x 2.0 and the right side measuring 3.2 x 1.6 cm. There are enlarged scattered mesenteric and. Small lymph nodes are seen in both inguinal areas. Pelvic structures: Prostate is enlarged and heterogeneous with multiple metallic seeds in place. This does cause impression to the urinary bladder. Urinary bladder shows diffuse wall thickening without other focal abnormality. Vessels: Mild atherosclerotic calcifications seen throughout a nonaneurysmal abdominal aorta and branches. Musculoskeletal / Body wall: No acute or aggressive osseous abnormality. Degenerative changes spine. IMPRESSION: 1. No acute intra-abdominal abnormality 2. Significant worsening enlarged adenopathy throughout the abdomen and pelvis as above. Patient has history of CLL. 3. The liver shows a mottled heterogeneous appearance. More so on the right lobe. No discrete lesion is identified. This could be due to passive venous congestion. 4. Splenomegaly, this is more prominent than the previous exam. Central spleen does show stable 1.2 cm hypodensity. 5. Small bilateral pleural effusions. Consolidation the right inferior middle lobe is early with consolidation of the left lower lobe. These could represent pneumonia versus atelectasis. 6. Cardiomegaly with moderate pericardial effusion 7. The urinary bladder shows circumferential wall thickening. This is partially decompressed and could be due to decompression or possibly some a little obstruction due to the enlarged prostate which shows metallic seeds in place. Other etiologies for the wall thickening could be due to infection. 8. Other chronic findings as above. Report Dictated By: Zach Nieto at 08/03/2018 4:53 PM Report E-Signed By: Zach Nieto at 08/03/2018 5:05 PM WSN:[id number]: [facility] PATIENT NAME: Juan Manzano : 1945 MR: [id number] V: [id number] EXAM DATE: ORDERING PHYSICIAN: MELINA DODD TECHNOLOGIST: Location: [facility] Patient: Juan Manzano : 1945 Visit/Account:[id number] Date of Sevice: 08/03/2018 CT angiogram chest with contrast Indication: Shortness of breath. Comparison: 06/01/2015. Technique: Axial CT images are obtained through the chest after administration of 75 mL Isovue 370 IV contrast. Reformatted coronal and sagittal images were re viewed as well as coronal MIP images. One of the following dose optimization techniques was utilized in the performance of this exam: automated exposure control; adjustment of the mA and/or kV according to the patient's size; or use of an iterative reconstruction technique. Specific details can be referenced in the facility's radiology CT exam operational policy. FINDINGS: No evidence of filling defect within the pulmonary vasculature to suggest pulmonary embolus. Heart is mildly diffusely enlarged and slightly more prominent than the previous examination. The right ventricle measures 4.0 cm and the left ventricle measures 4.1 cm. At least moderate pericardial fluid is present which is new. Coronary artery calcifications. The aorta shows atherosclerotic calcific changes without aneurysm or dissection. The mediastinum and hilar regions show numerous enlarged lymph nodes with the largest in the right pretracheal region measuring 2.9 x 2.8 cm. This is enlarged compared to the previous examination with diffuse enlargement of the lymph nodes. No abnormal density seen in the mediastinum. The lungs show small bilateral pleural effusions. There is consolidation seen in the posterior left lower lobe and early consolidation seen in the inferior right middle lobe. Lungs show mild emphysematous changes. No other areas of consolidation. No pneumothorax or discrete nodule. The airways are clear. Bony structures show no acute fractures or aggressive bony lesions. De generative change seen spine. Chest wall shows numerous bilateral enlarged lymph nodes largest measuring 1.8 x 2.0 cm on the left and 2.5 x 2.2 cm on the right. These are more enlarged than on the previous examination. No chest wall masses. The central spleen does show a hypodense lesion measuring 1 cm. This is unchanged from the previous examination. The upper abdomen shows multiple periportal, gastrohepatic and periaortic adenopathy with the largest periportal lymph node measuring 2.6 x 1.6 cm. Largest periaortic is posteriorly measuring 1.9 x 1.2 cm and the largest gastrohepatic lymph node measures 1.9 x 1.3 cm. These are increased from the previous exam. Upper abdomen is otherwise unremarkable. IMPRESSION: 1. No evidence of pulmonary embolus. 2. Small bilateral pleural effusions. There is consolidation the posterior left lower lobe and early consolidation the inferior right middle lobe. Pneumonia versus atelectasis. 3. Cardiomegaly. More pronounced than the previous exam. There is also at least moderate pericardial fluid present which is new. 4. Worsening diffuse enlarged adenopathy in the mediastinum, hilar, axillary and upper abdomen. Patient has history of CLL. 5. Stable 1 cm splenic hypodensity. Report Dictated By: Zach Nieto at 08/03/2018 4:39 PM Report E-Signed By: Zach Nieto at 08/03/2018 4:53 PM WSN:[id number] ED Course/Re-evaluation ED Course Patient CTA chest showing moderate pericardial effusion talking with patient he had this drained once before at [facility] his oncologist Dr. Felder is down there as well I'm I did talk to Dr. Victor she is portfolio consultant for at the [facility] she is accept care will transfer by ALS ground to be admitted ICU at [facility] Re-evaluation In ER blood cultures 2 drawn Levaquin 750 was given IV 40 of Lasix IV as well working on transfer to [facility] Decision to Disposition Date: Aug 03, 2018 Decision to Disposition Time: 18:15 Transfer Facility [facility] Depart Departure Latest Vital Signs Vital Signs Date Time Temp Pulse Resp B/P (MAP) Pulse Ox O2 Delivery O2 Flow Rate FiO2 08/03/18 19:50 86 14 96 08/03/18 19:45 120/80 (93) 08/03/18 14:08 Non-Rebreather 15.0 08/03/18 13:28 98.1 Impression: Primary Impression: CHF (congestive heart failure) Additional Impressions: Pneumonia Pericardial effusion Pleural effusion Ascites Condition: Improved Disposition: XFER TO [facility] Referrals: EVANGELISTA CULVER MD (PCP) Problem Qualifiers MELINA DODD Aug 03, 2018 13:28
[2018-08-03] MEDS ORDERED: ALBUTEROL/IPRATROPIUM 3 ML NEB NEB ONE (13:50)
[2018-08-03 14:22] LABS: PLATELET COUNT, AUTOMATED 183 K/uL (150-450)
--- NOTE | 2018-08-03 15:21 | RADIOLOGY IMAGING REPORT ---
FACILITY: [facility] PATIENT NAME: Juan Manzano : 1945 MR: [id number] V: [id number] EXAM DATE: ORDERING PHYSICIAN: MELINA DODD TECHNOLOGIST: Location: [facility] Patient: Juan Manzano : 1945 Visit/Account:[id number] Date of Sevice: 08/03/2018 Exam type: CHEST SINGLE AP History: Chest Pain Comparison: Interval 2018. Findings: There appears to be increasing airspace consolidation in the left lung base with silhouetting of the left hemidiaphragm. Chronic changes in the right lung base appears stable. The cardiac silhouette i s enlarged. There are prominent hilar shadows. IMPRESSION: 1. Increasing airspace consolidation in the left lower lobe with silhouetting the left hemidiaphragm . Spines are likely related to infiltrate and/or atelectasis Chronic changes the right lung base unchanged Cardiomegaly unchanged Prominent hilar shadows unchanged Report Dictated By: Jaleesa Gonzalez MD at 08/03/2018 3:14 PM Report E-Signed By: Jaleesa Gonzalez MD at 08/03/2018 3:17 PM WSN:[id number]
[2018-08-03] MEDS ORDERED: IOPAMIDOL 76% 100 ML INFUS BTL 100 ML ONE (15:42)
[2018-08-03] MEDS ORDERED: NS(*) 0.9% 50 ML BAG 50 ML ONE (15:42)
--- NOTE | 2018-08-03 15:48 | EKG ---
FACILITY: [facility] PATIENT NAME: KAREN PEREYRA : [id number] MR: [id number] V: [id number] EXAM DATE: [id number] ORDERING PHYSICIAN: MELINA DODD TECHNOLOGIST: GARY Test Reason : SOB Blood Pressure : / mmHG Vent. Rate : 088 BPM Atrial Rate : 086 BPM P-R Int : 000 ms QRS Dur : 090 ms QT Int : 334 ms P-R-T Axes : 000 095 -23 degrees QTc Int : 404 ms Atrial fibrillation Nonspecific ST abnormality Abnormal ECG Confirmed by SURAJ CONNORS ([id number]) on 08/03/2018 8:42:38 PM Referred By: MANJU Confirmed By:SURAJ CONNORS
--- NOTE | 2018-08-03 16:58 | RADIOLOGY IMAGING REPORT ---
FACILITY: [facility] PATIENT NAME: Juan Manzano : 1945 MR: [id number] V: [id number] EXAM DATE: ORDERING PHYSICIAN: MELINA DODD TECHNOLOGIST: Location: [facility] Patient: Juan Manzano : 1945 Visit/Account:[id number] Date of Sevice: 08/03/2018 CT angiogram chest with contrast Indication: Shortness of breath. Comparison: 06/01/2015. Technique: Axial CT images are obtained through the chest after administration of 75 mL Isovue 370 IV contrast. Reformatted coronal and sagittal images were reviewed as well as coronal MIP images. One of the following dose optimization techniques was utilized in the performance of this exam: auto mated exposure control; adjustment of the mA and/or kV according to the patient's size; or use of an iterative reconstruction technique. Specific details can be referenced in the facility's radiology C T exam operational policy. FINDINGS: No evidence of filling defect within the pulmonary vasculature to suggest pulmonary embolus. Heart is mildly diffusely enlarged and slightly more prominent than the previous examination. The ri ght ventricle measures 4.0 cm and the left ventricle measures 4.1 cm. At least moderate pericardial fluid is present which is new. Coronary artery calcifications. The aorta shows atherosclerotic calc ific changes without aneurysm or dissection. The mediastinum and hilar regions show numerous enlarge d lymph nodes with the largest in the right pretracheal region measuring 2.9 x 2.8 cm. This is enlar ged compared to the previous examination with diffuse enlargement of the lymph nodes. No abnormal de nsity seen in the mediastinum. The lungs show small bilateral pleural effusions. There is consolidation seen in the posterior left lower lobe and early consolidation seen in the inferior right middle lobe. Lungs show mild emphysema tous changes. No other areas of consolidation. No pneumothorax or discrete nodule. The airways are clear. Bony structures show no acute fractures or aggressive bony lesions. Degenerative change seen spine. Chest wall shows numerous bilateral enlarged lymph nodes largest measuring 1.8 x 2.0 cm on the left and 2.5 x 2.2 cm on the right. These are more enlarged than on the previous examination. No chest w all masses. The central spleen does show a hypodense lesion measuring 1 cm. This is unchanged from the previous examination. The upper abdomen shows multiple periportal, gastrohepatic and periaortic adenopathy wi th the largest periportal lymph node measuring 2.6 x 1.6 cm. Largest periaortic is posteriorly measu ring 1.9 x 1.2 cm and the largest gastrohepatic lymph node measures 1.9 x 1.3 cm. These are increase d from the previous exam. Upper abdomen is otherwise unremarkable. IMPRESSION: 1. No evidence of pulmonary embolus. 2. Small bilateral pleural effusions. There is consolidation the posterior left lower lobe and early consolidation the inferior right middle lobe. Pneumonia versus atelectasis. 3. Cardiomegaly. More pronounced than the previous exam. There is also at least moderate pericardi al fluid present which is new. 4. Worsening diffuse enlarged adenopathy in the mediastinum, hilar, axillary and upper abdomen. Pat ient has history of CLL. 5. Stable 1 cm splenic hypodensity. Report Dictated By: Zach Nieto at 08/03/2018 4:39 PM Report E-Signed By: Zach Nieto at 08/03/2018 4:53 PM WSN:[id number]
--- NOTE | 2018-08-03 17:11 | RADIOLOGY IMAGING REPORT ---
FACILITY: [facility] PATIENT NAME: Juan Manzano : 1945 MR: [id number] V: [id number] EXAM DATE: ORDERING PHYSICIAN: MELINA DODD TECHNOLOGIST: Location: [facility] Patient: Juan Manzano : 1945 Visit/Account:[id number] Date of Sevice: 08/03/2018 CT abdomen and pelvis with IV contrast Indication: Left abdominal pain. Comparison: 05/09/2014.. Technique: Axial CT images were obtained through the abdomen and pelvis during injection of nonioni c iodinated intravenous contrast. Reformatted coronal and sagittal images were also obtained. One of the following dose optimization techniques was utilized in the performance of this exam: Autom ated exposure control; adjustment of the mA and/or kV according to the patient's size; or use of an i terative reconstruction technique. Specific details can be referenced in the facility's radiology C T exam operational policy. Contrast: 75 ml of Isovue-370 IV contrast. Findings: Lower lung horn: Small bilateral pleural effusions. Consolidation left posterior lower lobe and ea rly consolidation right inferior middle lobe. Mild cardiomegaly. Moderate pericardial fluid. Liver: Diffusely heterogeneous and mottled appearance without focal lesion. The hepatic veins are no t well visualized. The portal veins appear to be patent. Biliary: Gallbladder appears unremarkable as well as the intra and extra hepatic biliary system. Pancreas: Normal appearance. Spleen: Spleen is enlarged measuring 16 cm and the craniocaudad dimension. Central spleen shows a st able 1.2 cm hypodensity. No other focal abnormality. Adrenal glands: Unremarkable. Kidneys / retroperitoneum: The right kidney does show 2 mm stone in the collecting system without hyd ronephrosis. The left kidney shows no stone or hydronephrosis. No discrete renal lesions. Bowel / peritoneum / mesenteries: The colon shows no focal abnormality. The appendix is normal. The small bowel shows no focal abnormality or obstruction but the stomach is grossly normal. Small small amount free fluid seen in the pelvis in the paracolic gutter regions. No fluid collectio ns, free air or focal areas of inflammation. Lymph node assessment: There are multiple enlarged lymph nodes which are significantly enlarged evelyn red the previous examination. The periaortic adenopathy is more prominent with the largest on the le ft side measuring at least 5.9 x 4.6 cm. Periportal adenopathy with largest measuring approximately 3.0 x 1.5 cm. Gastrohepatic adenopathy with largest measuring 1.0 x 2.0 cm, bilateral iliac adenopat hy with largest on left side measuring 6.7 x 2.0 and the right side measuring 3.2 x 1.6 cm. There ar e enlarged scattered mesenteric and. Small lymph nodes are seen in both inguinal areas. Pelvic structures: Prostate is enlarged and heterogeneous with multiple metallic seeds in place. This does cause impression to the urinary bladder. Urinary bladder shows diffuse wall thickening wit hout other focal abnormality. Vessels: Mild atherosclerotic calcifications seen throughout a nonaneurysmal abdominal aorta and bran ches. Musculoskeletal / Body wall: No acute or aggressive osseous abnormality. Degenerative changes spine. IMPRESSION: 1. No acute intra-abdominal abnormality 2. Significant worsening enlarged adenopathy throughout the abdomen and pelvis as above. Patient alvarez s history of CLL. 3. The liver shows a mottled heterogeneous appearance. More so on the right lobe. No discrete lesi on is identified. This could be due to passive venous congestion. 4. Splenomegaly, this is more prominent than the previous exam. Central spleen does show stable 1.2 cm hypodensity. 5. Small bilateral pleural effusions. Consolidation the right inferior middle lobe is early with co nsolidation of the left lower lobe. These could represent pneumonia versus atelectasis. 6. Cardiomegaly with moderate pericardial effusion 7. The urinary bladder shows circumferential wal l thickening. This is partially decompressed and could be due to decompression or possibly some a li ttle obstruction due to the enlarged prostate which shows metallic seeds in place. Other etiologies for the wall thickening could be due to infection. 8. Other chronic findings as above. Report Dictated By: Zach Nieto at 08/03/2018 4:53 PM Report E-Signed By: Zach Nieto at 08/03/2018 5:05 PM WSN:[email or web address]
[2018-08-03] MEDS ORDERED: LEVOFLOXACIN/D5W 750 MG/150 ML 150 ML IVPB ONE (17:15)
[2018-08-03] MEDS ORDERED: FUROSEMIDE 40 MG/4 ML VIAL IVP ONE (18:05)
[2018-08-03 19:45] VITALS: BP 120/80
== END 2018-08-03 20:12 | disposition short-term general hospital (02) ==
LOC: ER 13:58
DX: I50.9 Heart failure, unspecified (principal); J18.9 Pneumonia, unspecified organism; I31.3 Pericardial effusion (noninflammatory); J90 Pleural effusion, not elsewhere classified; R18.8 Other ascites
CPT/HCPCS: 71045; 71275; 74177; 81001; 83605; 83690; 83735; 83880; 84484; 85025; 85379; 87040; 93005; 94640; 96374; 99285; J1940; J1956; J7050; J7620; Q9967; 82040; 82247; 82310; 82374; 82435; 82565; 82947; 84075; 84132; 84155; 84295; 84450; 84460; 84520

== ENCOUNTER → 2018-08-03 | Outpatient (CLI) | payer MEDICARE ==
[2016-05-30 17:17] VITALS: BMI 26.8
[~2018-08-03] MED LIST changes: +CEPH500T7 PO
== END ==
LOC: AMB 16:42
PROVIDERS: ATTEND Nurse Practitioner
DX: J18.9 Pneumonia, unspecified organism (principal); J91.8 Pleural effusion in other conditions classified elsewhere; J44.1 Chronic obstructive pulmonary disease with (acute) exacerbation
CPT/HCPCS: A0425; A0426

== ENCOUNTER 2018-09-08 08:29 | Outpatient (RCR) | payer MEDICARE ==
[2016-05-30 17:17] VITALS: Wt 78.9 kg
[2018-08-12 08:37] VITALS: BP 121/70
[2018-08-12] MEDS: LIDOCAINE/SOD BICARB 8.4% SYR ID PRN (08:51)
[2018-08-12] MEDS: ACETAMINOPHEN 325 MG TAB PO PRN (08:51)
[2018-08-12] MEDS: diphenhydrAMINE 50 MG/ML VIAL IVP PRN (08:52)
[2018-08-12] MEDS: NS(*) 0.9% 100 ML BAG 100 ML IVPB PRN (08:52)
[2018-08-12 10:39] VITALS: BP 108/48
[2018-08-12 11:08] VITALS: BP 97/44
[2018-08-12 12:16] VITALS: BP 113/52
[2018-08-12 12:43] VITALS: BP 118/65
[2018-08-12 13:35] VITALS: BP 115/43
[~2018-09-08 08:29] MED LIST changes: +DEXTROSE 5%(*) 100 ML BAG 100 ML IVPB PRN; +IMMU GLOB(IGG) 20GR/200ML VIAL 200 ML IV ONE; +[UNRECOGNIZED DRUG - MIXTURE] IV ONE
[2018-09-08 08:31] VITALS: BP 124/77
[2018-09-08] MEDS: LIDOCAINE/SOD BICARB 8.4% SYR ID PRN (08:43)
[2018-09-08] MEDS: NS(*) 0.9% 100 ML BAG 100 ML IVPB PRN (08:44)
[2018-09-08] MEDS ORDERED: [UNRECOGNIZED DRUG - MIXTURE] IV ONE (08:45)
[2018-09-08] MEDS ORDERED: IMMU GLOB(IGG) 20GR/200ML VIAL 200 ML IV ONE (08:45)
[2018-09-08] MEDS: ACETAMINOPHEN 325 MG TAB PO PRN (08:47)
[2018-09-08] MEDS: diphenhydrAMINE 50 MG/ML VIAL IVP PRN (08:48)
[2018-09-08 12:41] VITALS: BP 104/70
== END 2018-09-25 13:25 | disposition home or self-care (01) ==
LOC: SPU 08:29
PROVIDERS: ATTEND Internal Medicine Medical Oncology
DX: D80.1 Nonfamilial hypogammaglobulinemia (principal)
CPT/HCPCS: 71046; 82784; 85027; 96365; 96366; 96375; A9270; J1200; J1459; J7050; 82040; 82247; 82310; 82374; 82435; 82565; 82947; 84075; 84132; 84155; 84295; 84450; 84460; 84520

== ENCOUNTER → 2018-09-08 | Outpatient (CLI) | payer MEDICARE ==
[2016-05-30 17:17] VITALS: BMI 26.8
[~2018-09-08] MED LIST changes: +DIGO125T73 PO
--- NOTE | 2018-09-08 17:00 | RADIOLOGY IMAGING REPORT ---
[place] [facility] [place]: Juan Manzano : 1945 MR: [id number] V: [id number] EXAM DATE: ORDERING PHYSICIAN: ROSELINE LEDEZMA TECHNOLOGIST: Location: [facility] [place] Patient: Juan Manzano : 1945 Visit/Account:[id number] Date of Sevice: 09/08/2018 2 VIEWS CHEST INDICATION: Cough and shortness of breath. COMPARISON: 08/03/2018. FINDINGS: Cardiac silhouette remains enlarged but unchanged. Mediastinal silhouette and pulmonary vessels withi n normal limits. There is no focal infiltrate or lobar consolidation. Minimal prominence of the interstitium. Blunting the right costophrenic angle. Question a small amount fluid in the right minor fissure. No a ppreciable left effusion. No indication of pneumothorax. No discrete nodule. Upper abdomen is unremarkable. No acute bony abnormality. IMPRESSION: 1. Stable enlarged heart silhouette. There may be very mild edema without focal infiltrate. Small ri ght pleural effusion. I called report to ROSELINE LEDEZMA at 09/08/2018 4:44 PM. Report Dictated By: Zach Nieto at 09/08/2018 4:35 PM Report E-Signed By: Zach Nieto at 09/08/2018 4:56 PM WSN:[id number]
== END ==
LOC: RAD 15:59
PROVIDERS: ATTEND Nurse Practitioner Primary Care
DX: I51.7 Cardiomegaly (principal)
CPT/HCPCS: 71046

== ENCOUNTER → 2018-10-05 | Outpatient (CLI) | payer MEDICARE ==
[2016-05-30 17:17] VITALS: BMI 26.8
[~2018-10-05] MED LIST changes: -DEXTROSE 5%(*) 100 ML BAG 100 ML IVPB PRN; -IMMU GLOB(IGG) 20GR/200ML VIAL 200 ML IV ONE; -[UNRECOGNIZED DRUG - MIXTURE] IV ONE
== END ==
LOC: LAB 13:39
PROVIDERS: ATTEND Internal Medicine Cardiovascular Disease
DX: I50.33 Acute on chronic diastolic (congestive) heart failure (principal)
CPT/HCPCS: 36415; 82310; 82374; 82435; 82565; 82947; 84132; 84295; 84520

== ENCOUNTER 2018-11-10 08:35 | Outpatient (RCR) | payer MEDICARE ==
[2016-05-30 17:17] VITALS: Wt 76.9 kg
[~2018-11-10 08:35] MED LIST changes: +FURO-47 PO; +POTA-53 PO
== END 2018-12-03 11:45 | disposition home or self-care (01) ==
LOC: SPU 08:35
PROVIDERS: ATTEND Radiology Radiation Oncology
DX: C61 Malignant neoplasm of prostate (principal)
CPT/HCPCS: 36415; 84153; 96365; 96366; 96375; A9270; J1200; J1561; J7050

== ENCOUNTER → 2018-11-26 | Outpatient (CLI) | payer MEDICARE ==
[2016-05-30 17:17] VITALS: BMI 26.8
== END ==
LOC: LAB 14:31
PROVIDERS: ATTEND Internal Medicine Medical Oncology
DX: C91.90 Lymphoid leukemia, unspecified not having achieved remission (principal)
CPT/HCPCS: 36415; 86704; 86706; 87340; G0472; 86803

== ENCOUNTER 2018-12-03 09:00 | Outpatient (RCR) | payer MEDICARE ==
[2016-05-30 17:17] VITALS: Wt 76.9 kg
[2018-10-08 08:17] VITALS: BP 111/89
[2018-10-08] MEDS: ACETAMINOPHEN 325 MG TAB PO PRN (08:37)
[2018-10-08] MEDS: diphenhydrAMINE 50 MG/ML VIAL IVP PRN (08:37)
[2018-10-08 12:31] VITALS: BP 110/86
[2018-11-04 11:31] VITALS: BP 101/48
[2018-11-10 09:32] VITALS: BP 113/70
[2018-11-10] MEDS: ACETAMINOPHEN 325 MG TAB PO PRN (09:36)
[2018-11-10] MEDS: diphenhydrAMINE 50 MG/ML VIAL IVP PRN (09:37)
[2018-11-10 12:05] VITALS: BP 107/87
[~2018-12-03 09:00] MED LIST changes: +DEXTROSE 5%(*) 100 ML BAG 100 ML IVPB PRN; +IMMU GLOB(IGG) 20GR/200ML VIAL 20 GR, IMMU GLOB(IGG) 10GR/100ML VIAL 10 GR in EMPTY EVA... IVPB ONE; +IMMUNE GLOBULIN IV ONE; -IOPAMIDOL 76% 100 ML INFUS BTL 100 ML ONE; +LIDOCAINE/SOD BICARB 8.4% SYR ID PRN; +NS(*) 0.9% 100 ML BAG 100 ML IVPB PRN; +[UNRECOGNIZED DRUG - OTHER] IV ONE
[2018-12-03] MEDS ORDERED: HEPARIN FLSH (PORT) 500 UN/5ML IVP PRN (10:50)
[2018-12-03] MEDS ORDERED: NS(*) 0.9% 250 ML BAG 250 ML IVPB PRN (10:50)
[2018-12-03] MEDS ORDERED: NS(*) 0.9% 100 ML BAG 100 ML IVPB PRN (10:50)
[2018-12-03] MEDS ORDERED: ALTEPLASE RECOMB 2 MG VIAL IVP PRN (10:50)
[2018-12-03] MEDS ORDERED: LIDOCAINE/SOD BICARB 8.4% SYR ID PRN (10:50)
[2018-12-03] MEDS ORDERED: WATER FOR INJ,STERILE 20 ML IVP PRN (10:50)
[2018-12-03] MEDS ORDERED: DEXTROSE 5%(*) 100 ML BAG 100 ML IVPB PRN (10:50)
== END 2019-01-05 ==
LOC: SPU 09:00
PROVIDERS: ATTEND Internal Medicine Medical Oncology
DX: C91.90 Lymphoid leukemia, unspecified not having achieved remission (principal); D80.1 Nonfamilial hypogammaglobulinemia
CPT/HCPCS: 36415; 71260; 74177; 82784; 85027; 96365; 96366; 96375; A9270; J1200; J1459; J1561; J1642; J7050; Q9967; 82040; 82247; 82310; 82374; 82435; 82565; 82947; 84075; 84132; 84155; 84295; 84450; 84460; 84520

== ENCOUNTER → 2018-12-03 | Outpatient (CLI) | payer MEDICARE ==
[2016-05-30 17:17] VITALS: BMI 26.8
[~2018-12-03] MED LIST changes: +IOPAMIDOL 76% 100 ML INFUS BTL 100 ML ONE
--- NOTE | 2018-12-03 13:56 | RADIOLOGY IMAGING REPORT ---
FACILITY: [facility] [place] PATIENT NAME: Juan Manzano : 1945 MR: [id number] V: [id number] EXAM DATE: ORDERING PHYSICIAN: JOB NOEL TECHNOLOGIST: Location: [facility] [place] Patient: Juan Manzano : 1945 Visit/Account:[id number] Date of Sevice: 12/03/2018 CT EXAMINATION: CT Chest with Contrast CT Abdomen with Contrast CT Pelvis with Contrast 12/03/2018 9:00 AM HISTORY: Chronic lymphocytic leukemia TECHNIQUE: Spiral scan was obtained through the chest, abdomen and pelvis before and during injecti on of nonionic iodinated intravenous contrast. Contrast: 75 mL of IV Isovue 370. One of the following dose optimization techniques was utilized in the performance of this exam: Autom ated exposure control; adjustment of the mA and/or kV according to the patient's size; or use of an i terative reconstruction technique. Specific details can be referenced in the facility's radiology C T exam operational policy. COMPARISON STUDIES: Comparison made to previous study of 08/03/2018. FINDINGS: CHEST: Lungs / pleura: Centrilobular emphysematous changes. No focal lung mass lesions. No effusions. No parenchymal mass lesions. Tracheal and bronchial airways are well-maintained. Mediastinum / suni: Anterior perivesical lymph nodes are seen . . Largest lymph node is at the leve l of the aortic arch measuring 2.2 x 1.6 cm in size. (Image 41 series 4) This is smaller than the pr evious measurement of 2.0 x 2.5 cm. Numerous additional lymph nodes of varying smaller sizes are see n throughout the anterior mediastinum most of which appear slightly smaller in size as well. A right paratracheal lymph node is seen measuring 2.6 x 1.9 cm (image 35). This is smaller than the previou s examination which measured 2.9 x 2.7 cm. There is a carinal lymph node (image 48 series 4) measuri ng 1.6 x 1.4 cm in size. Previous measurement 1.9 x 1.7 cm. Numerous scattered subcentimeter nodes are seen within the pretracheal region. An azygos esophageal recess node measuring 2.2 x 1.6 cm (irina ge 62 is) smaller in size. Previous measurement was 3.0 x 2.9 cm. Heart / pericardium: Pericardial effusion noted similar to the previous examination measuring up to 2 cm in depth. Vessels: There is a right chest [id number] catheter now in place. Distal tip at the cavoatrial ju nction. Musculoskeletal / Body wall: There is a left lateral chest wall lymph node measuring 1.4 x 1.0 cm in size (image 47 series 4) this is smaller than the previous measurement of 1.7 x 1.5 cm. Lymph node assessment: See above and below Lower neck: Thyroid glands normal. Scattered supraclavicular lymph nodes seen largest on the right ( image three series 2) measuring 1.2 x 0.9 cm. Previously this lymph node measured 1.5 x 1.4 cm. Adj acent smaller lymph nodes are seen as well. Largest lymph node on the left measures 1.4 x 1.0. (Irina ge 11) Previous measurement was 1.6 x 1.3 cm. Lymph nodes seen under left sternocleidomastoid muscl e (image 4) measuring 1.2 x 1.1 cm in size had previously measured 1.7 x 1.5 cm. ABDOMEN AND PELVIS: Liver / biliary: Somewhat nodular appearing liver parenchyma. No focal liver lesions. Gallbladder u nremarkable. Pancreas: negative Spleen: Spleen measures 11.7 cm anteroposterior and 10 cm right to left. 15 cm craniocaudal. This i s similar to the previous examination. Stable appearing hypoattenuated cystic lesion seen within the inferior aspect of the spleen measuring 1.2 cm. Adrenal glands: Negative Kidneys / retroperitoneum: negative Pelvic structures: Prostate seeds noted. Bowel / peritoneum / mesenteries: No colonic mass lesions. No bowel inflammation. Markedly increase d ascites which is extending throughout the abdomen from subdiaphragmatic levels down to the cul-de-s ac. Vessels: negative Musculoskeletal / Body wall: negative Lymph node assessment: There is a gastrohepatic ligament lymph node (image 110 series 2) is measuring 2.5 x 1.3 cm in size. This has increased in siz when compared to previous examination where it ramos sured 1.97 x 1.0. A hermes hepatis node (image 127) measures 3.2 x 1.6 cm in size. Previous measurem ent was 3.0 x 1.4 cm.A large confluence of lymph nodes in the left periaortic region at the level of the kidneys is seen measuring 6.8 x 6.1 cm (image 146). Previous measurement was 5.1 x 6.2. It has also increased in size in its craniocaudal dimension on the coronal image 56. Measuring 16.6 cm x 6. 6 cm. Previous measurement was 15.9 x 5.9 cm. A left iliac lymph node measuring 3.3 x 2.1 cm in size (image 179) has increased from previous measu rement of 2.6 x 2.0 cm. A right iliac lymph node measuring 3.3 x 2.1 cm (image 24) has increased in size from the previous measurement of 3.1 x 1.6 cm.. A left common iliac lymph node seen measuring 3 .8 x 2.1 cm in size (image 163) has increased in size compared to previous study. 2.8 x 1.8 cm. Bony structures unremarkable. IMPRESSION: 1. Apparent mixed response with slight decrease in the size of mediastinal and axillary/chest lympha denopathy but slight increased lymph node size within the abdomen and pelvis as described with the r eferenced lymph nodes mentioned. 2. Significant increase in the degree of ascites when compared to the previous examination. Report Dictated By: Jaydon Moran MD at 12/03/2018 12:27 PM Report E-Signed By: Jaydon Moran MD at 12/03/2018 1:50 PM WSN:[email or web address]
== END ==
LOC: CT 01:35
PROVIDERS: ATTEND Internal Medicine Medical Oncology
DX: R18.8 Other ascites (principal)
CPT/HCPCS: 71260; 74177; Q9967

== ENCOUNTER 2018-12-11 09:00 | Outpatient (RCR) | payer MEDICARE ==
[2016-05-30 17:17] VITALS: BMI 26.8
[2018-10-06 16:47] VITALS: BP 134/56
[2018-10-06 16:48] VITALS: BP 120/62
--- NOTE | 2018-10-07 15:41 | CARDIAC REHAB PLAN OF CARE ---
Physician: Nneka Mott MD Patient is being seen: Estrella Albert MS Medical Diagnosis: TAVR Date of Onset: 09/17/18 Date of Initial Evaluation: 10/06/18 INTERVENTIONS: Due Date: 11/07/18 Patient Assessment: Patient is a 73 yr old male who comes to CR following a TAVR placement on 09/17/18. The procedure was successful and the patient reports feeling a little better every day. He has a significant healthy history, positive for chronic respiratory failure (he did attend pulmonary rehab in 2016), COPD, HTN, high cholesterol, sleep apnea, pericardial effusion, and cancer (lymphatic leukemia and prostate). ECG tracing shows AFIB for which he is currently being treated medically. 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 Lifestyle considerations include heavy smoking for 30+ years (quit in 2003), alcohol abuse, and relatively poor dietary choices (see nutrition assessment below). The patient expressed interest in joining the CR program and will be in the 10am class. Exercise Assessment: The patient is significantly deconditioned and reports that he has not been physically active in quite some time. During his 6 Minute Walk test the patient walked a total of 400ft for an average speed of 0.75mph. He had to stop at four different points during his test to stop, rest, and catch his breath. For exercise, he chose to use the NuStep, which is appropriate considering his stamina level. While exercising, his SPO2 does drop to 86% on 6L of oxygen. He will need to use a high flow nasal cannula to receive the amount of oxygen his body requires. HR remained between 75-85bpm, which is approximately 25bpm above his resting rate which is a good intensity to start with. Exercise Plan Goals: Primary goal will be to increase his exercise tolerance and overall stamina. We hope to achieve 45 minutes of continuous aerobic exercise (without breaks) by the end of his 36 week program. Exercise Prescription: Frequency: 3 days/week (MWF) Intensity: THR 70-85bpm; RPE 14-16 Time: 20 minutes to start Type: Walking and NuStep. Patient should start by walking laps around the track, starting with 1/session and increasing from there as he sees fit. Exercise Reassessment (Date: ) Exercise Discharge/Follow-Up (Date: ) Nutrition Assessment: Patient reports that his is in charge of the meals and cooking and he has little to know knowledge of nutrition and his dietary consumption. He eats a traditional [place]ese style diet. Recently his has been trying to switch them to following a Weight Watchers diet, focusing on lowering processed foods and portion control. Patient tends to eat out 4 lunches/week at local restaurants. Nutrition Plan Goals: Primary goal is to help the patient become aware of and start to care about his dietary consumption and how that can play a role in his overall health, fitness level, and future independence. Intervention: Intervention will include small stepssimply talking about diet on a regular basis with the patient and providing easy to follow reading material about dietary guidelines and facts. Education: Education will focus on heart healthy foods, specifically vegetables and fruits (which he does not particularly like eating) as well as how to eat out at restaurants and choose heart healthier options. Nutrition Reassessment (Date: ) Nutrition Discharge/Follow-Up (Date: ) Psychosocial Assessment: According to his Hospital Anxiety and Depression Scale (HADS) assessment the patient ranks within the normal range for both depression (3/21) and anxiety (5/21). He seems to be well aware of his physical health condition and handles the stress and anxiety associated with it well. He has a strong support system at home with his , who has been helping him make changes to better his overall lifestyle. The patient is cooperative and seems interested in joining the rehab program, stating he knows that he needs to be here and that he will get better by attending regularly. Psychosocial Plan Goals: Goals will be to provide a positive and safe educational and exercise environment that the patient feels comfortable engaging in. Intervention: Intervention includes engaging with the patient regularly and helping him set attainable goals. We need to foster a positive motivational environment to help encourage the patient to make the lifestyle changes he need to. Education: Education will focus on how a well-rounded lifestyle (e.g. exercise, nutrition, stress management, and sleep quality) affects our overall health and longevity and ability to remain independent. Psychosocial Reassessment (Date: ) Psychosocial Discharge/Follow-Up (Date: ) MARIO
[2018-10-09 13:04] VITALS: BP 122/62
[2018-10-09 13:06] VITALS: BP 116/54
[2018-10-14 13:06] VITALS: BP 118/62
[2018-10-14 13:07] VITALS: BP 116/50
[2018-10-21 18:32] VITALS: BP 110/60
[2018-10-21 18:33] VITALS: BP 108/62
[2018-10-23 12:48] VITALS: BP 106/44
[2018-10-23 12:49] VITALS: BP 126/62
[2018-10-26 12:49] VITALS: BP 128/60
[2018-10-26 12:50] VITALS: BP 120/58
[2018-10-28 12:45] VITALS: BP 128/54
[2018-10-28 12:46] VITALS: BP 102/68
[2018-10-30 15:34] VITALS: BP 126/62
[2018-10-30 15:35] VITALS: BP 110/74
[2018-11-02 13:27] VITALS: BP 120/68
[2018-11-02 13:28] VITALS: BP 100/60
[2018-11-04 17:10] VITALS: BP 108/72
[2018-11-04 17:11] VITALS: BP 118/72
[2018-11-23 12:57] VITALS: BP 110/52
[2018-11-23 12:58] VITALS: BP 108/70
[2018-12-04 13:20] VITALS: BP 128/64
[2018-12-04 13:21] VITALS: BP 120/68
[2018-12-09 12:42] VITALS: BP 126/50
[2018-12-09 12:44] VITALS: BP 120/54
--- NOTE | 2018-12-10 08:23 | CARDIAC REHAB PLAN OF CARE ---
Physician: Nneka Mott MD Patient is being seen: Albert, Estrella Medical Diagnosis: TAVR Date of Onset: 09/17/18 Date of Initial Evaluation: 10/06/18 Date patient was last seen: 12/09/18 Number of treatments: 15 Number of cancellations/No Shows: 12 INTERVENTIONS: Due Date: 01/10/19 The patient returns to CR following approximately a month of absence. He was on vacation and the recently was diagnosed with lymphatic leukemia for the second time. He does his chemo therapy on Mondays and Tuesdays in [place]. He plans to attend CR on Wednesdays and Fridays. Exercise Reassessment (12/10/18): The patient reports feeling good (despite recent health setbacks). He says his energy and stamina have begun to increase. Since his return to CR, he has been averaging about 30-35 minutes of continuous exercise per session. We asked him to keep the intensity low until we understand how his body is responding to chemotherapy. Goals for the next month include: Increasing time to 40-45 minutes/session, while keeping the METs below 3.5. His port has been causing him some discomfort and thus he has been avoiding upper body arm exercises. Once he heals, we will resume strength training. Nutrition Reassessment (12/10/18): No information to update nutritional intake. His dietary intake is likely to change with the inclusion of chemotherapywe want to make sure he is staying well fed, getting the calories he needs such that he can maintain his energy levels. Psychosocial Reassessment (12/10/18): Patient is in high spirits every time he attends CR. He has a strong family support system at home, which is helping him with his different health diagnoses. He appears to be accepting the news well about his recurrence of cancer and is motivated to return back to exercise. MARIO
[~2018-12-11 09:00] MED LIST changes: -DEXTROSE 5%(*) 100 ML BAG 100 ML IVPB PRN; -IMMU GLOB(IGG) 20GR/200ML VIAL 20 GR, IMMU GLOB(IGG) 10GR/100ML VIAL 10 GR in EMPTY EVA... IVPB ONE; -IMMUNE GLOBULIN IV ONE; -LIDOCAINE/SOD BICARB 8.4% SYR ID PRN; -NS(*) 0.9% 100 ML BAG 100 ML IVPB PRN; -[UNRECOGNIZED DRUG - OTHER] IV ONE
[2018-12-11 16:29] VITALS: BP_SYST 128; BP_SYST 132; BP_DIAS 50; BP_DIAS 60
== END 2019-01-04 ==
LOC: CARD 09:00
PROVIDERS: ATTEND Family Medicine
DX: Z95.2 Presence of prosthetic heart valve (principal); I48.91 Unspecified atrial fibrillation; I50.9 Heart failure, unspecified; J44.9 Chronic obstructive pulmonary disease, unspecified
CPT/HCPCS: 93798